=== PATIENT | female | born 1950 | race Caucasian/White ===

== ENCOUNTER → 2019-03-29 07:08 | Outpatient (CLI) | payer MEDICARE, BC, SELFPAY ==
[2019-03-29 14:15] LABS: Alanine Aminotransferase 23 U/L (12-78); Albumin Level 3.2 gm/dL (3.4-5.0); Albumin/Globulin Ratio 1.1 (1.1-1.8); Alkaline Phosphatase 70 U/L (46-116); Bilirubin,Total 0.5 mg/dL (0.2-1.0); Blood Urea Nitrogen 13 mg/dL (7-18); Calcium 8.9 mg/dL (8.5-10.1); Chloride 109 mmol/L (98-107); Cholesterol 179 mg/dL (140-200); Globulin 2.8 gm/dl (1.3-3.2)
[2019-03-29 14:20] LABS: Anion Gap 12.1 mEq/L (5-15); Aspartate Amino Transferase 17 U/L (15-37); Carbon Dioxide 26 mmol/L (21.0-32.0); Chol/HDL Ratio 4.7 (1-3.5); Creatinine,Serum 0.87 mg/dL (0.55-1.02); Estimated Glomerular Filt Rate 64 ml/min (>60); Free Thyroxine Index 2.6 ug/dL (5.93-13.13); GFR (African American) 78 ML/MIN (>60); Glucose 98 mg/dL (74-106); HDL Cholesterol 38 mg/dL (29-89); LDL Cholesterol 92 mg/dL (0-130); Potassium 4.1 mmoL/L (3.5-5.1); Sodium 143 mmol/L (136-145); T4 (Thyroxine) 7.5 ug/dl (4.7-13.3); Thyroid Stimulating Hormone 1.69 uIU/ml (0.358-3.740); Triglycerides 247 mg/dL (30-200); Triiodothryronine (T3) Uptake 35 % (31-39); VLDL Cholesterol 49 mg/dL (0-40)
[2019-03-29 14:40] LABS: Basophils # 0.1 K/mm3 (0-0.2); Basophils % 1.6 % (0.1-2.0); Eosinophils # 0.2 K/mm3 (0.0-0.4); Eosinophils % 3.6 % (0.1-12.0); Hematocrit 40.2 % (37.0-47.0); Hemoglobin 12.8 g/dL (12.2-16.2); Lymphocytes # 1.5 K/mm3 (0.7-4.5); Lymphocytes % 36.4 % (10-50); Mean Corpuscular HGB Conc 31.8 g/dL (31.8-35.4); Mean Corpuscular Hemoglobin 29.7 pg (27.0-31.2); Mean Corpuscular Volume 93.2 fl (81-99); Mean Platelet Volume 9.2 fl (7.4-10.4); Monocytes # 0.3 K/mm3 (0.1-1.0); Monocytes % 6.1 % (1.7-9.3); Neutrophils # 2.2 K/mm3 (1.8-7.8); Neutrophils % 52.3 % (37.0-80.0); Platelet Count 319 K/mm3 (142-424); Red Blood Count 4.31 M/mm3 (4.20-5.40); Red Cell Distribution Width 13.1 % (11.5-17.5); White Blood Count 4.2 K/mm3 (4.8-10.8)
[2019-03-29 17:22] LABS: Erythrocyte Sedimentation Rate 18 mm/hr (0-30)
[2019-03-30 18:23] LABS: Deamidated Gliadin Abs, IgA 3 units (0-19); Deamidated Gliadin Abs, IgG 2 units (0-19)
== END ==
PROVIDERS: PCP Internal Medicine Adolescent Medicine; Visit Provider Internal Medicine Adolescent Medicine
DX: E78.5 Hyperlipidemia, unspecified (principal); K52.9 Noninfective gastroenteritis and colitis, unspecified; E03.9 Hypothyroidism, unspecified
CPT/HCPCS: 36415; 80053; 80061; 83516; 84436; 84443; 84479; 85025; 85651

== ENCOUNTER → 2019-07-26 08:13 | Outpatient (CLI) | payer MEDICARE, BC, SELFPAY ==
--- NOTE | 2019-07-26 08:18 | XR_ITS ---
PROCEDURE: XR WRIST LT MIN 3V CLINICAL INDICATION: left wrist pain/ ganglion cyst COMPARISON: No exams were available for comparison FINDINGS: There are severe osteoarthritic changes at the scapho trapezium joint and at the 1st metacarpal-carpal joint. There is some osteophyte formation noted laterally at the trapezium and at the 1st metacarpal-carpal joint. No acute fracture or dislocation. No lytic or blastic change. There is mild lateral subluxation of the 1st metacarpal. IMPRESSION: Severe osteoarthritis of the 1st metacarpal-carpal joint and scapho trapezium joint Dictated by: Costa Nolasco MD 07/26/2019 10:49 Electronically signed by Costa Nolasco MD in [place] 07/26/2019 10:49
== END ==
PROVIDERS: PCP Internal Medicine Adolescent Medicine; Visit Provider Orthopaedic Surgery
DX: M25.532 Pain in left wrist (principal)
CPT/HCPCS: 73110

== ENCOUNTER → 2020-03-05 07:18 | Outpatient (CLI) | payer MEDICARE, BC, SELFPAY ==
--- NOTE | 2020-03-05 07:28 | XR_ITS ---
PROCEDURE: XR LUMBAR SPINE MIN 4V CLINICAL INDICATION: LUMBAR PAIN ON PALPATION COMPARISON: No exams were available for comparison FINDINGS: Mild levoscoliosis. There is degenerative disc disease at L1-L2 and L2-L3 and to lesser degree at L3-L4 and L4-5. Sclerosis is present along the superior endplate of L2. No acute fracture or dislocation. There are facet arthritic changes at L4-L5 and S1. IMPRESSION: Scoliosis with degenerative change Dictated by: Costa Nolasco MD 03/05/2020 14:37 Electronically signed by Costa Nolasco MD in [place] 03/05/2020 14:37
== END ==
PROVIDERS: PCP Nurse Practitioner Family; Visit Provider Nurse Practitioner Family
DX: M54.5 Low back pain (principal)
CPT/HCPCS: 72110

== ENCOUNTER → 2021-04-22 18:13 | Outpatient (CLI) | payer MEDICARE, BC, SELFPAY ==
[2021-04-22 19:08] LABS: Basophils # 0.1 K/mm3 (0-0.2); Basophils % 1.9 % (0.1-2.0); Eosinophils # 0.4 K/mm3 (0.0-0.4); Eosinophils % 5.8 % (0.1-12.0); Hematocrit 39.9 % (37.0-47.0); Hemoglobin 13.5 g/dL (12.2-16.2); Lymphocytes # 1.8 K/mm3 (0.7-4.5); Lymphocytes % 29.9 % (10-50); Mean Corpuscular HGB Conc 33.9 g/dL (31.8-35.4); Mean Corpuscular Hemoglobin 29.5 pg (27.0-31.2); Mean Corpuscular Volume 86.8 fl (81-99); Mean Platelet Volume 9.5 fl (7.4-10.4); Monocytes # 0.3 K/mm3 (0.1-1.0); Monocytes % 5.1 % (1.7-9.3); Neutrophils # 3.5 K/mm3 (1.8-7.8); Neutrophils % 57.3 % (37.0-80.0); Platelet Count 334 K/mm3 (142-424); Red Blood Count 4.59 M/mm3 (4.20-5.40); Red Cell Distribution Width 13.6 % (11.5-17.5); White Blood Count 6.1 K/mm3 (4.8-10.8)
[2021-04-22 19:09] LABS: Alanine Aminotransferase 16 U/L (12-78); Albumin Level 4.1 g/dl (3.5-5.0); Albumin/Globulin Ratio 1.5 (1.1-1.8); Alkaline Phosphatase 78 U/L (38-126); Anion Gap 10.6 mEq/L (5-15); Aspartate Amino Transferase 36 U/L (14-36); Blood Urea Nitrogen 16 mg/dl (7-17); Calcium 8.9 mg/dl (8.4-10.2); Carbon Dioxide 27 mmol/L (22.0-30.0); Chloride 109 mmol/L (98-107); Chol/HDL Ratio 4.9 (1-3.5); Cholesterol 212 mg/dl (140-200); Estimated Glomerular Filt Rate 71 ml/min (>60); GFR (African American) 85 ML/MIN (>60); Globulin 2.7 g/dL (1.3-3.2); Glucose 96 mg/dl (74-100); HDL Cholesterol 43 mg/dl (40-60); Potassium 4.6 mmoL/L (3.5-5.1); Sodium 142 mmol/L (136-145); Total Protein,Serum 6.8 g/dl (6.3-8.2); Triglycerides 187 mg/dl (30-150); VLDL Cholesterol 37 mg/dL (0-40)
[2021-04-22 19:21] LABS: Direct LDL Cholesterol 130.25 mg/dL (100-129)
[2021-04-22 19:41] LABS: Thyroid Stimulating Hormone 1.51 uIU/mL (0.465-4.68)
[2021-04-22 19:59] LABS: Vitamin B12 219 pg/mL (239-931)
[2021-04-22 20:47] LABS: Hemoglobin A1C 5.8 % (4.0-6.0)
[2021-04-22 20:54] LABS: 25-OH Vitamin D, Total 19.4 ng/mL (30-100)
== END ==
PROVIDERS: Visit Provider Internal Medicine Adolescent Medicine
DX: E03.9 Hypothyroidism, unspecified (principal); E78.5 Hyperlipidemia, unspecified; E55.9 Vitamin D deficiency, unspecified; Z79.899 Other long term (current) drug therapy
CPT/HCPCS: 80053; 80061; 82306; 82607; 83036; 84443; 85025

== ENCOUNTER → 2021-07-08 18:47 | Outpatient (CLI) | payer MEDICARE, BC, SELFPAY ==
[2021-07-08 19:17] LABS: Basophils # 0.1 K/mm3 (0-0.2); Basophils % 1.4 % (0.1-2.0); Eosinophils # 0.2 K/mm3 (0.0-0.4); Eosinophils % 3.3 % (0.1-12.0); Hematocrit 45.7 % (37.0-47.0); Hemoglobin 14.2 g/dL (12.2-16.2); Lymphocytes # 1.4 K/mm3 (0.7-4.5); Lymphocytes % 23.8 % (10-50); Mean Corpuscular Hemoglobin 29.2 pg (27.0-31.2); Mean Corpuscular Volume 94.3 fl (81-99); Mean Platelet Volume 9.1 fl (7.4-10.4); Monocytes # 0.3 K/mm3 (0.1-1.0); Monocytes % 5.2 % (1.7-9.3); Neutrophils % 66.4 % (37.0-80.0); Platelet Count 347 K/mm3 (142-424); Red Blood Count 4.85 M/mm3 (4.20-5.40); Red Cell Distribution Width 13.3 % (11.5-17.5)
[2021-07-08 19:55] LABS: Alanine Aminotransferase 18 U/L (12-78); Albumin Level 4.2 g/dl (3.5-5.0); Albumin/Globulin Ratio 1.4 (1.1-1.8); Alkaline Phosphatase 80 U/L (38-126); Anion Gap 12.7 mEq/L (5-15); Aspartate Amino Transferase 28 U/L (14-36); Bilirubin,Total 0.8 mg/dl (0.2-1.3); Blood Urea Nitrogen 14 mg/dl (7-17); Calcium 9.6 mg/dl (8.4-10.2); Carbon Dioxide 28 mmol/L (22.0-30.0); Chloride 106 mmol/L (98-107); Estimated Glomerular Filt Rate 98 ml/min (>60); GFR (African American) 119 ML/MIN (>60); Glucose 99 mg/dl (74-100); Magnesium 1.6 mg/dl (1.6-2.3); Potassium 4.7 mmoL/L (3.5-5.1); Sodium 142 mmol/L (136-145); Total Protein,Serum 7.2 g/dl (6.3-8.2)
[2021-07-08 20:19] LABS: Thyroid Stimulating Hormone 1.31 uIU/mL (0.465-4.68)
[2021-07-08 20:45] LABS: Vitamin B12 > 1000 pg/mL (239-931)
[2021-07-08 21:03] LABS: 25-OH Vitamin D, Total 30.8 ng/mL (30-100)
== END ==
PROVIDERS: Visit Provider Internal Medicine Adolescent Medicine
DX: E03.9 Hypothyroidism, unspecified (principal); E53.8 Deficiency of other specified B group vitamins; E55.9 Vitamin D deficiency, unspecified
CPT/HCPCS: 80053; 82306; 82607; 83735; 84443; 85025

== ENCOUNTER → 2021-07-09 08:23 | Outpatient (CLI) | payer MEDICARE, BC, SELFPAY ==
--- NOTE | 2021-07-09 08:32 | XR_ITS ---
PROCEDURE: XR HIP RT 2-3V W/PELVIS CLINICAL INDICATION: LOW BACK PAIN COMPARISON: No exams were available for comparison FINDINGS: No fracture or dislocation is evident. No significant degenerative change. No lytic or blastic change. Small calcific density is present cephalad to the greater trochanter and could be due to an area heterotopic ossification or tendinous calcification. Bony hypertrophy is present at the greater trochanter.. IMPRESSION: No acute finding. Dictated by: Costa Nolasco MD 07/09/2021 18:24 Costa Nolasco MD in [place] 07/09/2021 18:24
--- NOTE | 2021-07-09 08:32 | XR_ITS ---
PROCEDURE: XR HIP LT 2-3V W/PELVIS CLINICAL INDICATION: LOW BACK PAIN COMPARISON: No exams were available for comparison FINDINGS: No fracture or dislocation is evident. No significant degenerative change. No lytic or blastic change. Unremarkable soft tissues. IMPRESSION: Negative left Dictated by: Costa Nolasco MD 07/09/2021 18:26 Costa Nolasco MD in [place] 07/09/2021 18:26
--- NOTE | 2021-07-09 08:32 | XR_ITS ---
PROCEDURE: XR LUMBAR SPINE MIN 4V CLINICAL INDICATION: LOW BACK PAIN COMPARISON: CR XR LUMBAR SPINE MIN 4V from 03/05/2020 FINDINGS: Mild upper lumbar scoliosis convex left. There is degenerative disc disease at L1-L2 with anterior osteophytes not significantly changed. There are mild facet hypertrophic/arthritic changes at L3 L4 and L5. The SI joints have an unremarkable appearance. There are bilateral tubal ligation clips IMPRESSION: Lumbar scoliosis with degenerative disc disease at L1-L2 and facet arthritic changes. No acute finding. Dictated by: Costa Nolasco MD 07/09/2021 18:22 oCsta Nolasco MD in [place] 07/09/2021 18:22
--- NOTE | 2021-07-09 08:32 | XR_ITS ---
PROCEDURE: XR SACROILIAC JOINT BI MIN 3V CLINICAL INDICATION: LOW BACK PAIN COMPARISON: No exams were available for comparison FINDINGS: No fracture or dislocation. No lytic or blastic change. There is normal mineralization. Joint spaces are well preserved. There is minimal spurring along the inferior aspect of the SI joints. No fusion, lytic or blastic change. Other findings:None. IMPRESSION: Minimal degenerative changes of the SI joints Dictated by: Costa Nolasco MD 07/09/2021 18:27 Costa Nolasco MD in [place] 07/09/2021 18:27
== END ==
PROVIDERS: PCP Internal Medicine Adolescent Medicine; Visit Provider Internal Medicine Adolescent Medicine
DX: M54.50 Low back pain, unspecified (principal); M53.3 Sacrococcygeal disorders, not elsewhere classified; M25.552 Pain in left hip; M25.551 Pain in right hip
CPT/HCPCS: 72110; 72202; 73502

== ENCOUNTER → 2021-07-24 14:21 | Outpatient (POV) | payer MEDICARE, BC, SELFPAY ==
[2021-07-24 14:59] VITALS: BP 143/84; PULSE 85; RESP 18; O2SAT 95; BMI 33.3
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
== END ==
PROVIDERS: Visit Provider Clinical Nurse Specialist Family Health
DX: M46.1 Sacroiliitis, not elsewhere classified (principal); M70.61 Trochanteric bursitis, right hip
CPT/HCPCS: 99202; G0463

== ENCOUNTER 2021-08-08 13:30 | Day surgery (SDC) | payer MEDICARE, BC, SELFPAY ==
[2021-08-08 13:52] VITALS: BP 139/76; PULSE 79; RESP 18; TEMP 36.6; O2SAT 95; BMI 24.4
--- NOTE | 2021-08-08 14:20 | HMH.PMPROC ---
- Procedure Date: 08/08/21 Time: 14:20 Anesthesiologist:: Marilia Hardin MD Complications:: None Pre-procedure Diagnosis:: Right sacroiliitis, right-sided low back pain, right-sided hip pain Post-procedure Diagnosis:: Same Indications for Procedure:: Patient is a very pleasant 71-year-old white female who presents today with chronic low back pain and right-sided hip pain related to the above diagnosis. She has tried and failed conservative treatment including oral pain medication and home stretching program for greater than 6 weeks. The plan for today is for the patient to undergo right-sided SI joint injections under fluoroscopy and right-sided trochanteric bursa injection under fluoroscopy. Procedure Details:: Informed consent was obtained and the risks and benefits of the procedure was going to the patient. Patient was taken to the procedure room. Patient was placed prone on the procedure table. The right hip was prepped using ChloraPrep. The skin and subcutaneous tissues were anesthetized using lidocaine. I placed a 22-gauge spinal needle into the inferior aspect of the right SI joint. Needle placement was confirmed with dye. After this we injected 5 mL bupivacaine 0.25% and Depo-Medrol 40 mg into the right SI joint. The patient tolerated the procedure well with no complication. Next, the skin and subcutaneous tissues overlying the right trochanteric bursa were anesthetized using 2 ml of 1% lidocaine. I placed a 22-gauge spinal needle under fluoroscopic guidance and advanced until it contacted the right greater trochanter. Needle placement was confirmed with dye. After this we injected 5 mL bupivacaine 0.25% and Depo-Medrol 40 mg. Patient tolerated the procedure well with no complications. Plan and Disposition:: We will follow-up this patient in 2 weeks. Will reevaluate pain symptoms at that time.
[2021-08-08 14:21] VITALS: BP 144/86; PULSE 74; RESP 18; O2SAT 95
[2021-08-08 14:22] VITALS: BP 139/81; PULSE 78; RESP 18; O2SAT 95
[2021-08-08 14:40] VITALS: BP 139/75; PULSE 76; RESP 20; O2SAT 95
== END 2021-08-08 14:41 | disposition home or self-care (01) ==
LOC: SC.PAINP 13:31
PROVIDERS: PCP Internal Medicine Adolescent Medicine; Visit Provider Anesthesiology Pain Medicine
DX: M46.1 Sacroiliitis, not elsewhere classified (principal); M54.59 Other low back pain; M25.551 Pain in right hip; E78.5 Hyperlipidemia, unspecified; M19.90 Unspecified osteoarthritis, unspecified site; E07.9 Disorder of thyroid, unspecified; F32.A Depression, unspecified; F41.9 Anxiety disorder, unspecified; Z86.718 Personal history of other venous thrombosis and embolism; Z90.49 Acquired absence of other specified parts of digestive tract; Z88.9 Allergy status to unspecified drugs, medicaments and biological substances; Z88.6 Allergy status to analgesic agent; Z91.02 Food additives allergy status
CPT/HCPCS: 20610; 27096; 77002; G0260; J1040; Q9966

== ENCOUNTER → 2021-08-28 14:24 | Outpatient (POV) | payer MEDICARE, BC, SELFPAY ==
[2021-08-28 14:58] VITALS: BP 121/71; PULSE 85; RESP 18; O2SAT 95; BMI 30.7
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
== END ==
PROVIDERS: Visit Provider Clinical Nurse Specialist Family Health
DX: M46.1 Sacroiliitis, not elsewhere classified (principal); M54.50 Low back pain, unspecified; M25.551 Pain in right hip
CPT/HCPCS: 99212; G0463

== ENCOUNTER 2021-09-24 13:11 | Day surgery (SDC) | payer MEDICARE, SELFPAY ==
[2021-09-24 13:26] VITALS: BP 156/84; PULSE 71; RESP 20; TEMP 36; O2SAT 94; BMI 30.7
[2021-09-24 14:01] VITALS: BP 165/78; PULSE 69; RESP 18; O2SAT 95
[2021-09-24 14:02] VITALS: PULSE 74; RESP 18; O2SAT 95
--- NOTE | 2021-09-24 14:04 | HMH.PMPROC ---
- Procedure Date: 09/24/21 Time: 14:04 Anesthesiologist:: Pato Walsh MD Complications:: None Pre-procedure Diagnosis:: Sacroiliitis Post-procedure Diagnosis:: Same Indications for Procedure:: This patient is a pleasant 71-year-old white female who we are treating for right-sided hip pain. She has chronic right-sided sacroiliitis. She did well with her last SI joint injection however it did not last very long. She is tender over the right SI joint. She does have a positive Cassandra's test on the right side. She has positive Georges Mills's test on the right side. She has positive SI joint compression test on the right side. We will do a repeat right SI joint injection under fluoroscopy today to help her with her pain symptoms. Procedure Details:: Right SI joint injection under fluoroscopy Informed consent was obtained and the risks and benefits of the procedure was going to the patient. Patient was taken to the procedure room. Patient was placed prone on the procedure table. The right hip was prepped using ChloraPrep. The skin and subcutaneous tissues were anesthetized using lidocaine. I placed a 22-gauge spinal needle into the inferior aspect of the right SI joint. Needle placement was confirmed with dye. After this we injected 5 mL bupivacaine 0.25% and Depo-Medrol 40 mg into the right SI joint. The patient tolerated the procedure well with no complication. Plan and Disposition:: We will follow-up with her in 2 weeks. Will reevaluate symptoms at that time. If she does not get long-term relief from this injection she may be a candidate for SI joint stabilization with cornerloc.
[2021-09-24 14:17] VITALS: BP 150/78; PULSE 67; RESP 20; O2SAT 94
== END 2021-09-24 14:18 | disposition home or self-care (01) ==
LOC: SC.PAINP 13:12
PROVIDERS: PCP Internal Medicine Adolescent Medicine; Visit Provider Anesthesiology
DX: M46.1 Sacroiliitis, not elsewhere classified (principal); E78.5 Hyperlipidemia, unspecified; E07.9 Disorder of thyroid, unspecified; Z86.718 Personal history of other venous thrombosis and embolism; K57.32 Diverticulitis of large intestine without perforation or abscess without bleeding; F32.A Depression, unspecified; M19.90 Unspecified osteoarthritis, unspecified site; Z88.6 Allergy status to analgesic agent; Z88.8 Allergy status to other drugs, medicaments and biological substances
CPT/HCPCS: 27096; G0260; J1040; Q9966

== ENCOUNTER → 2021-10-14 08:19 | Outpatient (POV) | payer MEDICARE, SELFPAY ==
[2021-10-14 08:34] VITALS: BP 164/78; PULSE 91; RESP 20; TEMP 35.9; O2SAT 96; BMI 30.7
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
== END ==
PROVIDERS: Visit Provider Clinical Nurse Specialist Family Health
DX: M54.50 Low back pain, unspecified (principal); M54.16 Radiculopathy, lumbar region
CPT/HCPCS: 99212; G0463

== ENCOUNTER → 2021-10-20 14:20 | Outpatient (CLI) | payer MEDICARE, SELFPAY ==
--- NOTE | 2021-10-20 14:24 | MR_ITS ---
FINAL REPORT CLINICAL HISTORY: LUMBAR PAIN. rt sided lbp [id number]. FINDINGS: Multiplanar MR imaging of the lumbar spine was performed without contrast. There is levoscoliosis. On the sagittal T2-weighted images, disc degeneration is seen throughout. There is mild retrolisthesis of L1 on L2. There is mild anterolisthesis of L4 on L5. There is no evidence of fracture. There are multiple hemangiomas. The conus has an unremarkable appearance. No significant canal stenosis is identified. There is a small cyst in the mid sacral spinal canal. T12-L1: There is an annular bulge with facet arthropathy. There is a left foraminal inferiorly extruded disc. There is mild right and moderate left neural foraminal narrowing. L1-2: There is an annular bulge, facet arthropathy and vertebral osteophytes. There is a right foraminal disc protrusion. There is severe right and moderate left neural foraminal narrowing. L2-3: There is an annular bulge with facet arthropathy. There is moderate bilateral neural foraminal narrowing. L3-4: There is an annular bulge with facet arthropathy. There is a small right foraminal disc protrusion. There is mild right neural foraminal narrowing. L4-5: There is an annular bulge with facet arthropathy. There is mild left neural foraminal narrowing. L5-S1: An annular bulge and facet arthropathy are present. There is no significant canal stenosis or neural foraminal narrowing. IMPRESSION: Left foraminal inferiorly extruded disc at T12-L1. Right foraminal disc protrusions at L1-L2 and L3-L4 without significant central canal stenosis. Multilevel degenerative disc disease with areas of neural foraminal narrowing as described. Reviewed, Interpreted and Dictated by Armando Gaming III, MD Transcribed by Ean Angela Authenticated by Armando Gaming III, MD on 10/20/2021 04:33:18 PM [facility]
== END ==
PROVIDERS: PCP Internal Medicine Adolescent Medicine; Visit Provider Clinical Nurse Specialist Family Health
DX: M54.50 Low back pain, unspecified (principal)
CPT/HCPCS: 72148; 76376

== ENCOUNTER → 2021-11-06 08:19 | Outpatient (POV) | payer MEDICARE, SELFPAY ==
[2021-11-06 08:55] VITALS: BP 147/77; PULSE 87; RESP 18; O2SAT 96; BMI 30.7
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
== END ==
PROVIDERS: Visit Provider Anesthesiology Pain Medicine
DX: M51.36 Other intervertebral disc degeneration, lumbar region (principal); M54.06 Panniculitis affecting regions of neck and back, lumbar region; M47.816 Spondylosis without myelopathy or radiculopathy, lumbar region; M46.1 Sacroiliitis, not elsewhere classified
CPT/HCPCS: 99212; G0463

== ENCOUNTER 2021-11-21 14:32 | Day surgery (SDC) | payer MEDICARE, SELFPAY ==
[2021-11-21 14:44] VITALS: BP 145/74; BP 149/80; BP 150/77; PULSE 69; PULSE 70; PULSE 71; RESP 17; RESP 20; TEMP 36.7; O2SAT 93; O2SAT 95; BMI 29.7
--- NOTE | 2021-11-21 15:25 | P.PCN_ITS ---
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 She has increasing pain over the low back and both hips. She has worsening pain with extension and twisting. She is tender over the facet joints of L4-5 and L5-S1. We will plan on lumbar medial branch block/facet joint injections of L4-5 and L5-S1 today. Procedure Details:: Lumbar medial branch block Informed consent was obtained and the risks and benefits of the procedure was explained to the patient. The back was prepped using ChloraPrep. The skin and subcutaneous tissues were anesthetized using lidocaine. I placed 22-gauge spi nal needles into the facet joint/medial branches of L4-L5 and L5-S1 bilaterally. Needle placement was confirmed with dye. After this we injected 3 mL bupivacaine 0.25% and Depo-Medrol 20 mg into each facet joint/medial branch of L4-L5 and L5-S1 bilaterally. We used a total of 80 mg Depo-Medrol for both levels bilaterally. The patient tolerated the procedure well with no complications. Plan and Disposition:: We will follow-up with her in 2 weeks. Will reevaluate symptoms at that time.
[2021-11-21 15:30] VITALS: BP 161/81; PULSE 76; RESP 20; O2SAT 97
== END 2021-11-21 15:30 | disposition home or self-care (01) ==
LOC: SC.PAINP 14:33
PROVIDERS: PCP Internal Medicine Adolescent Medicine; Visit Provider Anesthesiology
DX: M51.36 Other intervertebral disc degeneration, lumbar region (principal); M47.812 Spondylosis without myelopathy or radiculopathy, cervical region; M54.06 Panniculitis affecting regions of neck and back, lumbar region; E03.9 Hypothyroidism, unspecified; E78.5 Hyperlipidemia, unspecified; Z86.718 Personal history of other venous thrombosis and embolism; Z88.6 Allergy status to analgesic agent; Z88.8 Allergy status to other drugs, medicaments and biological substances
CPT/HCPCS: 64493; 64494; Q9966

== ENCOUNTER 2021-12-16 08:00 | Outpatient (RCR) | payer MEDICARE, SELFPAY ==
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
== END 2021-12-17 11:20 | disposition home or self-care (01) ==
LOC: PT.CARL 08:00
PROVIDERS: PCP Internal Medicine Adolescent Medicine; Visit Provider Clinical Nurse Specialist Family Health
DX: M54.50 Low back pain, unspecified (principal)
CPT/HCPCS: 97010; 97014; 97110; 97140; 97163; 97164; 97530; G0283

== ENCOUNTER → 2021-12-18 15:03 | Outpatient (POV) | payer MEDICARE, SELFPAY ==
[2021-12-18 15:15] VITALS: BP 120/78; PULSE 79; RESP 18; TEMP 36.4; O2SAT 95; BMI 30.7
--- NOTE | 2021-12-18 16:45 | HMH.PAINSOAP ---
[facility] Pain Management SOAP Note Subjective:: Patient is a pleasant 71-year-old female who is here for a follow up after facet injections/medial branch block at L4-L5 and L5-S1 bilaterally on November 21, 2021. Patient is currently being treated for degenerative disc disease of lumbar spine, lumbar spondylosis, lumbar facet arthropathy. After the procedure, patients reports 80 to 90% relief that lasted for almost 10 days and rates pain today at 1 out of 10. Patient denies any issues after the procedure. Patient feels like her pain is starting to come back after the injection. She would like to get a repeat injection scheduled. She does state that she was able to increase her activity more since that injection. She denies any recent falls or traumas. [facility] number [id number] with an active morphine equivalent 0. Drug screens have been reviewed and appropriate. Review of Systems: General: No recent weight changes, no fever, no sleep disturbances Respiratory: No cough, no shortness of air, no recurring pulmonary infections Cardiovascular/peripheral vascular: No chest pain, no palpitations, no edema, no shortness of breath Gastrointestinal: No new onset incontinence, normal bowel movements reported Genitourinary: No new onset incontinence Musculoskeletal: Low back pain Psychiatric: [Normal mood/affect] Neurological: [Denies weakness in extremities], [denies balance issues] Objective:: Physical Exam: General: Alert and oriented x3, no acute distress, pleasant and cooperative, [on room air] Lungs: Respirations even and unlabored, symmetrical chest expansion Eyes: PERRL Musculoskeletal: Flexion and extension of lumbar [spine] somewhat guarded secondary to pain, [antalgic gait noted]; +kemps test Neurological: Speech clear, no gross sensory deficit Assessment:: Degenerative disc disease of lumbar spine with lumbar radiculopathy symptoms, lumbar spondylosis, lumbar facet arthropathy Plan:: Patient has significant relief after her medial branch blocks/facet injection at L4-L5 and L5-S1 bilaterally. Patient denies any issues after the injection. Patient says that she feels like the injection is starting to wear off. She would like to schedule another injection today. We will schedule the patient for a medial branch block/facet injection at L4-L5 and L5-S1 bilaterally. Risks and benefits of the procedure have been explained to the patient. Patient would like to proceed with the procedure. Patient is currently not on any blood thinners. Patient states that she has had medial branch block injections in the past. I discussed with her that she could benefit from an RFA. She says that she is going to start to move to a newly renovated house. She says that she will try to get an RFA after she has completely moved into her house. Patient has been instructed to contact the clinic with any concerns before the next appointment. Dr. Walsh has reviewed this note and agrees with this plan of care. This note was dictated using voice recognition software and make contain errors or omissions. [facility] History Medical History: Reports:: Deep Vein Thrombosis, Hyperlipidemia Denies:: Cancer, Diabetes Mellitus Type 1, Diabetes Mellitus Type 2, MRSA, Seizures *Have you ever received a pneumonia vaccine?: Yes *Have you received a flu vaccine this season?: Yes Other Medical History: Reports: Arthritis, Hypothyroidism, Thyroid Disease Other Surgeries: Yes: Cholecystectomy, Colonoscopy, Tubal Ligation Amputation: No Fractures: No - *Social History Smoking Status: Never smoker Alcohol Intake: never *Occupational Status:: retired *Travel in the last 8 weeks: None Family Hx:: No significant family history
== END ==
PROVIDERS: Visit Provider Student in an Organized Health Care Education/Training Program
DX: M51.16 Intervertebral disc disorders with radiculopathy, lumbar region (principal); M47.896 Other spondylosis, lumbar region; M54.06 Panniculitis affecting regions of neck and back, lumbar region
CPT/HCPCS: 99212; G0463

== ENCOUNTER 2022-01-30 09:35 | Day surgery (SDC) | payer MEDICARE, SELFPAY ==
[2022-01-30 09:53] VITALS: BP 164/90; PULSE 72; RESP 18; TEMP 36.8; O2SAT 95; BMI 31.4
[2022-01-30 10:23] VITALS: BP 151/78; PULSE 72; RESP 18; O2SAT 94
--- NOTE | 2022-01-30 10:23 | P.PCN_ITS ---
- Procedure Date: 01/30/22 Time: 10:23 Anesthesiologist:: Mo Dobbs CRNA Complications:: None Pre-procedure Diagnosis:: Bilateral lumbar facet arthropathy L4-5, L5-S1 Post-procedure Diagnosis:: Same Indications for Procedure:: Patient is a pleasant 71-year-old female that presents to our injection clinic today for bilateral L4-5, L5-S1 bilateral medial branch block. Patient has had 1 round of the lumbar injections. Patient reports 8 to 10 days of relief. We will proceed with second round of medial branch block lumbar L4-5, L5-S1. Procedure Details:: Informed consent was obtained and the risk and benefits of the procedure was explained to the patient. Patient was taken to the procedure room where noninvasive monitors were placed, including noninvasive blood pressure cuff as well as pulse oximeter. The area over the lumbar spine was cleansed using chlorhexidine as a cleansing solution. I anesthetized the skin and subcutaneous tissues with 1% Lidocaine. I placed 22-gauge spinal needles into the facet joint/ medial branches of L4-L5, and L5-S1] bilaterally. Needle placement was confirmed with fluoroscopy. After confirmation of needle placement, each site was injected with 1 mL of 1% lidocaine and 0.25 % Marcaine and 10 mg of Depo- Medrol. A total of 80 mg of depo medrol was used for bilateral medial branch blocks of L4-L5, and L5-S1] bilaterally. Patient tolerated the procedure without difficulty. There were no complications. Plan and Disposition:: Patient was discharged without incident.
[2022-01-30 10:25] VITALS: BP 146/80; PULSE 80; RESP 18; O2SAT 94
[2022-01-30 10:40] VITALS: BP 147/86; PULSE 68; RESP 18; O2SAT 93
== END 2022-01-30 10:40 | disposition home or self-care (01) ==
LOC: SC.PAINP 09:36
PROVIDERS: PCP Internal Medicine Adolescent Medicine; Visit Provider Nurse Anesthetist, Certified Registered
DX: M47.816 Spondylosis without myelopathy or radiculopathy, lumbar region (principal); E78.5 Hyperlipidemia, unspecified; M19.90 Unspecified osteoarthritis, unspecified site; Z86.718 Personal history of other venous thrombosis and embolism; F41.9 Anxiety disorder, unspecified; F32.A Depression, unspecified; Z88.6 Allergy status to analgesic agent; Z88.8 Allergy status to other drugs, medicaments and biological substances; Z91.018 Allergy to other foods
CPT/HCPCS: 64493; 64494; J1040

== ENCOUNTER → 2022-03-03 09:25 | Outpatient (POV) | payer MEDICARE, SELFPAY ==
--- NOTE | 2022-03-03 09:58 | P.CONS_ITS ---
[facility] Pain Management SOAP Note Subjective:: This patient is a very pleasant 71-year-old female who returns our clinic today after receiving bilateral medial branch blocks L4-5, L5-S1. This was her second round. She had significant improvement with first round medial branch blocks same levels. Today she rates her pain 1/10. She states she has been feeling much better following the injections. Her low back pain is dull at times. Otherwise, she is doing very well. We did mention radiofrequency ablation of the L4-5 and L5-S1 bilateral facet joints. She will let us know if indeed she would like to have this in the future. Otherwise, she is doing very well at this time. Objective:: Patient is awake alert [place] x3. In no acute distress. Flexion-extension lumbar spine normal. Deep tendon reflexes upper and lower extremities normal. Motor strength upper and lower extremities normal. There is no gross sensory deficit. Gait is normal. Assessment:: Of disc disease lumbar spine multilevels. Multilevel lumbar facet arthropathy. Lumbar radiculopathy. LumBar spondylosis. Plan:: Patient return to see us in 1 month. [facility] History Medical History: Reports:: Deep Vein Thrombosis, Hyperlipidemia Denies:: Cancer, Diabetes Mellitus Type 1, Diabetes Mellitus Type 2, MRSA, Seizures *Have you ever received a pneumonia vaccine?: Yes *Have you received a flu vaccine this season?: Yes Other Medical History: Reports: Arthritis, Hypothyroidism, Thyroid Disease Other Surgeries: Yes: Cholecystectomy, Colonoscopy, Tubal Ligation Amputation: No Fractures: No - *Social History Smoking Status: Never smoker Alcohol Intake: never *Occupational Status:: retired *Travel in the last 8 weeks: Inside the [facility] Family Hx:: No significant family history
[2022-03-03 10:50] VITALS: BP 148/72; PULSE 83; RESP 20; TEMP 36.7; O2SAT 94; BMI 30.7
== END ==
PROVIDERS: Visit Provider Nurse Anesthetist, Certified Registered
DX: M51.16 Intervertebral disc disorders with radiculopathy, lumbar region (principal); M47.26 Other spondylosis with radiculopathy, lumbar region
CPT/HCPCS: 99212; G0463

== ENCOUNTER 2022-10-19 17:19 | Emergency (ER) | payer MEDICARE, SELFPAY ==
--- NOTE | 2022-10-19 17:24 | XR_ITS ---
PROCEDURE INFORMATION: Exam: XR Right Shoulder Exam date and time: 10/19/2022 5:28 PM Age: 72 years old Clinical indication: Injury or trauma; Fall; Blunt trauma (contusions or hematomas); Shoulder and arm, upper; Right TECHNIQUE: Imaging protocol: Radiologic exam of the Right shoulder. Views: 2 or more views. COMPARISON: No relevant prior studies available. FINDINGS: Bones/joints: No acute fracture or dislocation. Mild degenerative changes. Soft tissues: Normal. IMPRESSION: No acute osseous abnormality.
--- NOTE | 2022-10-19 17:24 | XR_ITS ---
PROCEDURE INFORMATION: Exam: XR Right Humerus Exam date and time: 10/19/2022 5:32 PM Age: 72 years old Clinical indication: Injury or trauma; Fall; Blunt trauma (contusions or hematomas); Shoulder and arm, upper; Right TECHNIQUE: Imaging protocol: Radiologic exam of the Right humerus. Views: 2 or more views. COMPARISON: CR XR SHOULDER RT MIN 2V 10/19/2022 5:28 PM FINDINGS: Bones/joints: No acute fracture or dislocation. Soft tissues: Normal. IMPRESSION: No acute osseous abnormality.
[2022-10-19 17:45] VITALS: BP 141/86; PULSE 85; RESP 17; TEMP 36.6; O2SAT 100; BMI 33.6
--- NOTE | 2022-10-19 18:05 | EXP.UTC ---
Discharge Plan Disposition Patient Disposition: Home, Self-Care Condition: Good Prescriptions Prescriptions: No Action cyanocobalamin (vitamin B-12) 2,500 mcg tablet 2,500 mcg PO DAILY cholecalciferol (vitamin D3) 50 mcg (2,000 unit) capsule 50 mcg PO DAILY hydroxyzine HCl 25 mg tablet 25 mg PO TID PRN (Reason: anxiety) diazepam 2 mg tablet 2 mg PO DAILY PRN (Reason: anxiety) All Day Allergy (cetirizine) 10 mg capsule 10 mg PO DAILY PRN nystatin 100,000 unit/gram cream 1 applic TP TID PRN amoxicillin 500 mg tablet 500 mg PO TID Qty: 30 0RF colestipol 1 gram tablet 3 g PO DAILY 30 Days Qty: 90 2RF levothyroxine 50 mcg tablet 50 mcg PO DAILY 30 Days Qty: 30 1RF escitalopram oxalate 10 MG tablet 10 mg PO DAILY Referrals Follow up/Referrals: Ze Beckford MD [Primary Care Provider] - See instructions Activity Restrictions/Add. Instructions Additional Instructions/Restrictions: *RICE, Rest the extremity, Ice 15-20 minutes 3-4 times daily, Compress- wear the constantine wrap as discussed as much as possible to help reduce swelling and pain, Elevate the extremity when at rest Over the counter Muscle rubs may help with pain and discomfort *Elevate when resting? *Ibuprofen 600-800mg every 6-8 hours as needed for pain an inflammation if you can take it. If need something more or cannot take Motrin you can take Tylenol in between doses of Ibuprofen to help Follow up with your Family Doctor if no improvement or any worsening of symptoms Clinical Impressions Clinical Impression: Acute shoulder pain Instructions Patient Instructions: How To Perform RICE (Rest, Ice, Compress, Elevate), Ibuprofen, Acetaminophen (Alternative Therapy) Discharge ED Provider: Lucero Moss [facility] [place] General Stated complaint: AO@1500 RT arm and shoulder inj Mode of Arrival: Ambulatory Source of Information: Patient Limitations: No Limitations Time Seen by Provider: 10/19/22 18:05 Description of Symptoms (Recalled from Triage Doc. by RN): PATIENT C/O INJURY TO RIGHT SHOULDER TODAY AFTER FALLING AT DAUGHTER'S STORE HEENT Symptoms (Recalled from RN notes): No Resp Symptoms (Recalled from RN notes): No Skin Symptoms (Recalled from RN notes): No MS Symptoms (Recalled from RN notes): Yes Functional Status (Recalled from RN notes): WNL History of Present Illness Provider Complaint: Patient states that earlier today she lost her footing and tripped and fell and landed on her right shoulder States that she has been having pain in her right shoulder/upper arm ever since States that it hurts when she tries to raise her arm State that as long as she keeps it down by her side she doesnt have pain just when she tries to raise it so she came in to get it checked Denies any other injury Related Data Home Medications Medication Instructions Recorded Confirmed escitalopram oxalate 10 mg tablet 10 mg PO DAILY Depression 08/08/21 09/28/22 cetirizine 10 mg capsule (All Day 10 mg PO DAILY PRN 04/03/22 09/28/22 Allergy (cetirizine)) cholecalciferol (vitamin D3) 50 50 mcg PO DAILY 04/03/22 09/28/22 mcg (2,000 unit) capsule cyanocobalamin (vitamin B-12) 2,500 mcg PO DAILY 04/03/22 09/28/22 2,500 mcg tablet diazepam 2 mg tablet 2 mg PO DAILY PRN anxiety 04/03/22 09/28/22 hydroxyzine HCl 25 mg tablet 25 mg PO TID PRN anxiety 04/03/22 09/28/22 nystatin 100,000 unit/gram topical 1 applic topical TID PRN 04/03/22 09/28/22 cream Previous Rx's Medication Instructions Recorded colestipol 1 gram tablet 3 g PO DAILY diarrhea 30 days #90 09/25/22 tabs levothyroxine 50 mcg tablet 50 mcg PO DAILY thyroid 30 days 09/25/22 #30 tabs amoxicillin 500 mg tablet 500 mg PO TID #30 tabs 09/28/22 Allergies Allergy/AdvReac Type Severity Reaction Status Date / Time Estrogens [ESTROGENS] Allergy Intermediate BLOOD CLOTS Verified 09/28/22 14:52 aspirin AdvReac Intermediate BLEED Verified 09/28/22 14:52 S
[2022-10-19 18:17] VITALS: BP 141/86; PULSE 85; RESP 17; TEMP 36.6; O2SAT 100
== END 2022-10-19 18:20 | disposition home or self-care (01) ==
PROVIDERS: Emergency Provider Nurse Practitioner; PCP Family Medicine
DX: M25.511 Pain in right shoulder (principal); W18.39XA Other fall on same level, initial encounter; Y92.512 Supermarket, store or market as the place of occurrence of the external cause
CPT/HCPCS: 73030; 73060; 99213; G0463

== ENCOUNTER 2022-11-17 10:00 | Outpatient (RCR) | payer MEDICARE, SELFPAY ==
--- NOTE | 2022-10-27 14:01 | HMH.PTOPEV ---
PT Outpatient Evaluation Rehab PT Outpatient Evaluation Start: 10/27/22 12:51 Freq: Status: Active Protocol: Document 10/27/22 12:51 PDESEROUX (Rec: 10/27/22 14:01 PDESEROUX [id number]) E-signed By Mo Alvarez, PT Outpatient Therapy Subjective History Subjective History Pt. is a 72 year old female whom presents to [facility] Outpatient Physical Therapy Services in [place] for the initial evaluation this date( 10/27/22) w/ c/o acute and constant RUE shldr. P!, weakness, and range of motion deficits of traumatic onset after falling onto RUE shldr. last Wednesday(10/19/22). Pt. reports getting her feet twisted up while carrying in some cans of soda. Pt. reports hearing a pop, but states it may have been one of the cans of soda secondary to fall . Recent diagnostic imaging( radiograph) negative for a fracture per pt. report. Pt. denies having any injections for current complaint. Pt. reports noticing a progression in improvements in RUE shldr. ROM and P! since the fall. Pt . reports performing self- assist(w/ LUE) RUE shldr. elevation and pendulums at home. Pt. reports icing shldr. some at home. Pt. denies numbness/tingling into the RUE . Current medications include Cetirizine, Cholecalciferol, Colestipol, Cyanocobalamin, Dizaepam, Escitalopram Oxalate , Hydroxyzine, Levothyroxine, and Nystatin. PMH includes tubal ligation, cholecystectomy, L-sided breast cystectomy, hx. OA, and post-polio syndrome affecting LUE. Pt. denies hx. of diabetes, denies hx. of cancer (self), denies latex allergy. Pt. reports medicational
== END 2022-12-08 08:15 | disposition home or self-care (01) ==
LOC: PT 10:00
PROVIDERS: PCP Family Medicine; Visit Provider Nurse Practitioner Family
DX: M25.511 Pain in right shoulder (principal)
CPT/HCPCS: 97010; 97014; 97110; 97163; 97530; G0283

== ENCOUNTER → 2023-02-02 16:14 | Outpatient (CLI) | payer MEDICARE, SELFPAY ==
[2023-02-02 16:41] LABS: Basophils # 0.1 K/mm3 (0-0.2); Eosinophils # 0.2 K/mm3 (0.0-0.4); Eosinophils % 3.4 % (0.1-12.0); Hematocrit 41.8 % (37.0-47.0); Hemoglobin 13.4 g/dL (12.2-16.2); Lymphocytes # 1.4 K/mm3 (0.7-4.5); Lymphocytes % 26.1 % (10-50); Mean Corpuscular Hemoglobin 29.9 pg (27.0-31.2); Mean Corpuscular Volume 93.4 fl (81-99); Mean Platelet Volume 9.3 fl (7.4-10.4); Monocytes # 0.3 K/mm3 (0.1-1.0); Monocytes % 5.8 % (1.7-9.3); Neutrophils # 3.4 K/mm3 (1.8-7.8); Neutrophils % 63.7 % (37.0-80.0); Platelet Count 372 K/mm3 (142-424); Red Blood Count 4.47 M/mm3 (4.20-5.40); Red Cell Distribution Width 12.9 % (11.5-17.5); White Blood Count 5.3 K/mm3 (4.8-10.8)
[2023-02-02 17:32] LABS: Alanine Aminotransferase 17 U/L (12-78); Albumin Level 4.1 g/dl (3.5-5.0); Albumin/Globulin Ratio 1.6 (1.1-1.8); Alkaline Phosphatase 76 U/L (38-126); Anion Gap 16.9 mEq/L (5-15); Aspartate Amino Transferase 27 U/L (14-36); Bilirubin,Total 0.8 mg/dl (0.2-1.3); Blood Urea Nitrogen 13 mg/dl (7-17); Calcium 9.1 mg/dl (8.4-10.2); Carbon Dioxide 28 mmol/L (22.0-30.0); Chloride 100 mmol/L (98-107); Chol/HDL Ratio 4.8 (1-3.5); Cholesterol 231 mg/dl (140-200); Estimated Glomerular Filt Rate 98 ml/min (>60); GFR (African American) 118 ML/MIN (>60); Globulin 2.5 g/dL (1.3-3.2); Glucose 96 mg/dl (74-100); HDL Cholesterol 48 mg/dl (40-60); Potassium 4.9 mmoL/L (3.5-5.1); Sodium 140 mmol/L (136-145); Total Protein,Serum 6.6 g/dl (6.3-8.2); Triglycerides 330 mg/dl (30-150); VLDL Cholesterol 66 mg/dL (0-40)
[2023-02-02 17:43] LABS: Direct LDL Cholesterol 132.96 mg/dL (100-129)
[2023-02-02 17:51] LABS: T4 (Thyroxine) 8.3 ug/dl (5.53-11.0)
[2023-02-02 17:52] LABS: 25-OH Vitamin D, Total 21.7 ng/mL (30-100)
[2023-02-02 18:05] LABS: Thyroid Stimulating Hormone 1.76 uIU/mL (0.465-4.68)
[2023-02-02 18:24] LABS: Vitamin B12 981 pg/mL (239-931)
== END ==
PROVIDERS: PCP Family Medicine; Visit Provider Family Medicine
DX: R53.83 Other fatigue (principal); E03.9 Hypothyroidism, unspecified; Z00.00 Encounter for general adult medical examination without abnormal findings; E55.9 Vitamin D deficiency, unspecified
CPT/HCPCS: 80053; 80061; 82306; 82607; 84436; 84443; 85025

== ENCOUNTER → 2023-08-11 23:27 | Outpatient (CLI) | payer MEDICARE, SELFPAY ==
[2023-08-11 16:20] LABS: Basophils # 0.1 K/mm3 (0-0.2); Basophils % 1.1 % (0.1-2.0); Eosinophils # 0.1 K/mm3 (0.0-0.4); Hematocrit 40.9 % (37.0-47.0); Hemoglobin 13.8 g/dL (12.2-16.2); Lymphocytes # 1.2 K/mm3 (0.7-4.5); Mean Corpuscular HGB Conc 33.8 g/dL (31.8-35.4); Mean Corpuscular Hemoglobin 31.4 pg (27.0-31.2); Mean Corpuscular Volume 92.9 fl (81-99); Mean Platelet Volume 9.4 fl (7.4-10.4); Monocytes # 0.4 K/mm3 (0.1-1.0); Monocytes % 5.9 % (1.7-9.3); Neutrophils # 4.2 K/mm3 (1.8-7.8); Platelet Count 317 K/mm3 (142-424); Red Blood Count 4.41 M/mm3 (4.20-5.40); Red Cell Distribution Width 13.2 % (11.5-17.5)
[2023-08-11 16:23] LABS: Chloride 104 mmol/L (98-107); Potassium 4.8 mmoL/L (3.5-5.1); Sodium 138 mmol/L (136-145)
[2023-08-11 16:25] LABS: Alanine Aminotransferase 18 U/L (12-78); Aspartate Amino Transferase 27 U/L (14-36); Blood Urea Nitrogen 16 mg/dl (7-17); Estimated Glomerular Filt Rate 82 ml/min (>60); GFR (African American) 99 ML/MIN (>60)
[2023-08-11 16:26] LABS: Albumin Level 4.3 g/dl (3.5-5.0); Albumin/Globulin Ratio 1.5 (1.1-1.8); Alkaline Phosphatase 80 U/L (38-126); Anion Gap 9.8 mEq/L (5-15); Calcium 9.1 mg/dl (8.4-10.2); Carbon Dioxide 29 mmol/L (22.0-30.0); Chol/HDL Ratio 5.1 (1-3.5); Cholesterol 235 mg/dl (140-200); Globulin 2.9 g/dL (1.3-3.2); Glucose 98 mg/dl (74-100); HDL Cholesterol 46 mg/dl (40-60); Total Protein,Serum 7.2 g/dl (6.3-8.2); Triglycerides 229 mg/dl (30-150); VLDL Cholesterol 46 mg/dL (0-40)
[2023-08-11 16:57] LABS: Thyroid Stimulating Hormone 1.16 uIU/mL (0.465-4.68)
== END ==
PROVIDERS: PCP Family Medicine; Visit Provider Family Medicine
DX: I10 Essential (primary) hypertension (principal); E03.9 Hypothyroidism, unspecified; Z00.00 Encounter for general adult medical examination without abnormal findings; R53.83 Other fatigue
CPT/HCPCS: 80053; 80061; 84443; 85025

== ENCOUNTER → 2023-08-24 10:21 | Outpatient (CLI) | payer MEDICARE, SELFPAY ==
--- NOTE | 2023-08-24 10:25 | XR_ITS ---
FINAL REPORT CLINICAL HISTORY: right shoulder pain FINDINGS: 3 views of the right shoulder were obtained. There is no acute fracture or dislocation. There are mild degenerative changes of the acromioclavicular and glenohumeral joints. There are no soft tissue abnormalities. IMPRESSION: No acute process. Reviewed, Interpreted and Dictated by Armando Gaming III, MD Transcribed by Ean Angela Authenticated and [facility]
== END ==
PROVIDERS: PCP Family Medicine; Visit Provider Orthopaedic Surgery
DX: M25.511 Pain in right shoulder (principal)
CPT/HCPCS: 73030

== ENCOUNTER → 2023-08-25 16:45 | Outpatient (CLI) | payer MEDICARE, SELFPAY ==
--- NOTE | 2023-08-25 16:45 | MR_ITS ---
FINAL REPORT CLINICAL HISTORY: low back pain and weakness COMPARISON: 10/20/2021 FINDINGS: Multiplanar MR imaging of the lumbar spine was performed without contrast. There is levoscoliosis. On the sagittal T2-weighted images, disc degeneration is seen throughout. There is mild retrolisthesis of L1 on 2. Endplate changes are seen at several levels. 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 There is mild anterolisthesis of L4 on 5. There is no evidence of fracture. The conus has an unremarkable appearance. T11-12: An annular bulge and facet arthropathy are present. There is no significant canal stenosis or neural foraminal narrowing. T12-L1: An annular bulge is present. Facet arthropathy and osteophytes are present. There is a left foraminal inferiorly extruded disc, moderately improved since prior. There is mild right and moderate left neural foraminal narrowing. L1-2: An annular bulge is present. Facet arthropathy and osteophytes are present. There is severe right and mild left neural foraminal narrowing. L2-3: An annular bulge is present. Facet arthropathy and osteophytes are present. There is severe right and mild left neural foraminal narrowing. L3-4: An annular bulge and facet arthropathy are present. There is mild bilateral neural foraminal narrowing. L4-5: An annular bulge and facet arthropathy are present. There is a right foraminal disc protrusion with mild right neural foraminal narrowing. L5-S1: An annular bulge and facet arthropathy are present. There is no significant canal stenosis or neural foraminal narrowing. IMPRESSION: Left foraminal inferiorly extruded disc at T12-L1, improved since prior. Multilevel degenerative disc disease and spondylosis. Right foraminal disc protrusion at L4-5. Reviewed, Interpreted and Dictated by Armando Gaming III, MD Transcribed by Lilliam Tapia Authenticated and [facility]
== END ==
PROVIDERS: PCP Family Medicine; Visit Provider Family Medicine
DX: M51.16 Intervertebral disc disorders with radiculopathy, lumbar region (principal); M54.50 Low back pain, unspecified
CPT/HCPCS: 72148; 76376

== ENCOUNTER 2024-01-12 18:00 | Outpatient (CLI) | payer MEDICARE, SELFPAY ==
[2024-01-12 16:41] LABS: Basophils # 0.1 K/mm3 (0-0.2); Basophils % 1.7 % (0.1-2.0); Eosinophils # 0.2 K/mm3 (0.0-0.4); Eosinophils % 3.3 % (0.1-12.0); Hematocrit 43.4 % (37.0-47.0); Lymphocytes # 1.4 K/mm3 (0.7-4.5); Lymphocytes % 25.5 % (10-50); Mean Corpuscular HGB Conc 32.3 g/dL (31.8-35.4); Mean Corpuscular Hemoglobin 31.1 pg (27.0-31.2); Mean Corpuscular Volume 96.4 fl (81-99); Mean Platelet Volume 9.6 fl (7.4-10.4); Monocytes # 0.3 K/mm3 (0.1-1.0); Monocytes % 5.7 % (1.7-9.3); Neutrophils # 3.5 K/mm3 (1.8-7.8); Platelet Count 334 K/mm3 (142-424); Red Blood Count 4.51 M/mm3 (4.20-5.40); Red Cell Distribution Width 13.3 % (11.5-17.5); White Blood Count 5.5 K/mm3 (4.8-10.8)
[2024-01-12 16:45] LABS: Alanine Aminotransferase 20 U/L (12-78); Albumin Level 4.4 g/dl (3.5-5.0); Albumin/Globulin Ratio 1.6 (1.1-1.8); Alkaline Phosphatase 76 U/L (38-126); Anion Gap 9.9 mEq/L (5-15); Aspartate Amino Transferase 32 U/L (14-36); Bilirubin,Total 1.2 mg/dl (0.2-1.3); Blood Urea Nitrogen 15 mg/dl (7-17); Calcium 9.7 mg/dl (8.4-10.2); Carbon Dioxide 28 mmol/L (22.0-30.0); Chloride 108 mmol/L (98-107); Chol/HDL Ratio 6.5 (1-3.5); Cholesterol 273 mg/dl (140-200); Estimated Glomerular Filt Rate 82 ml/min (>60); GFR (African American) 99 ML/MIN (>60); Globulin 2.7 g/dL (1.3-3.2); Glucose 101 mg/dl (74-100); HDL Cholesterol 42 mg/dl (40-60); Potassium 4.9 mmoL/L (3.5-5.1); Sodium 141 mmol/L (136-145); Total Protein,Serum 7.1 g/dl (6.3-8.2); Triglycerides 387 mg/dl (30-150); VLDL Cholesterol 77 mg/dL (0-40)
[2024-01-12 16:57] LABS: Direct LDL Cholesterol 129.86 mg/dL (100-129)
[2024-01-12 17:03] LABS: 25-OH Vitamin D, Total 22.7 ng/mL (30-100)
[2024-01-12 17:43] LABS: Vitamin B12 > 1000 pg/mL (239-931)
== END 2024-01-12 23:59 | disposition home or self-care (01) ==
LOC: LAB.DROPOF 01-13 10:12
PROVIDERS: PCP Family Medicine; Visit Provider Family Medicine
DX: E55.9 Vitamin D deficiency, unspecified (principal); E53.8 Deficiency of other specified B group vitamins; I10 Essential (primary) hypertension; E03.9 Hypothyroidism, unspecified; Z68.34 Body mass index [BMI] 34.0-34.9, adult
CPT/HCPCS: 80053; 80061; 82306; 82607; 82746; 84443; 85025

== ENCOUNTER 2024-05-31 11:01 | Outpatient (CLI) | payer MEDICARE, SELFPAY ==
--- NOTE | 2024-05-31 11:54 | ECG_ITS ---
APPROVED REPORT Exam: Resting ECG HR:90 bpm ECG Measurements Heart Rate 90 AXES TX 169 P 29 QRSd 75 QRS -29 QT 348 T 15 QTc 396 Conclusion SINUS RHYTHM LOW QRS VOLTAGE IN PRECORDIAL LEADS with late r wave progression - prob secondary to body habitus BORDERLINE ECG UNCONFIRMED REPORT Electronically signed by : Yohan Looney MD 06/06/2024 18:20:59
[2024-05-31 13:30] LABS: Basophils # 0.1 K/mm3 (0-0.2); Basophils % 1.6 % (0.1-2.0); Eosinophils # 0.1 K/mm3 (0.0-0.4); Eosinophils % 1.8 % (0.1-12.0); Hematocrit 42.4 % (37.0-47.0); Hemoglobin 13.4 g/dL (12.2-16.2); Lymphocytes # 1.8 K/mm3 (0.7-4.5); Lymphocytes % 25.8 % (10-50); Mean Corpuscular HGB Conc 31.7 g/dL (31.8-35.4); Mean Corpuscular Hemoglobin 29.8 pg (27.0-31.2); Mean Platelet Volume 8.9 fl (7.4-10.4); Monocytes # 0.3 K/mm3 (0.1-1.0); Monocytes % 4.2 % (1.7-9.3); Neutrophils # 4.5 K/mm3 (1.8-7.8); Neutrophils % 66.6 % (37.0-80.0); Platelet Count 451 K/mm3 (142-424); Red Blood Count 4.51 M/mm3 (4.20-5.40); White Blood Count 6.8 K/mm3 (4.8-10.8)
[2024-05-31 13:31] LABS: Chloride 108 mmol/L (98-107); Potassium 4.5 mmoL/L (3.5-5.1); Sodium 139 mmol/L (136-145)
[2024-05-31 13:34] LABS: Anion Gap 9.5 mEq/L (5-15); Blood Urea Nitrogen 19 mg/dl (7-17); Calcium 9.2 mg/dl (8.4-10.2); Carbon Dioxide 26 mmol/L (22.0-30.0); Estimated Glomerular Filt Rate 82 ml/min (>60); GFR (African American) 99 ML/MIN (>60); Glucose 95 mg/dl (74-100)
== END 2024-05-31 23:59 | disposition home or self-care (01) ==
LOC: PREOP 11:03
PROVIDERS: PCP Family Medicine; Visit Provider Surgery
DX: K61.0 Anal abscess (principal); Z01.818 Encounter for other preprocedural examination; Z01.810 Encounter for preprocedural cardiovascular examination
CPT/HCPCS: 80048; 85025; 93005

== ENCOUNTER 2024-06-02 06:04 | Day surgery (SDC) | payer MEDICARE, SELFPAY ==
[2024-06-02] VITALS (10 sets, daily range): BP systolic 135–165; BP diastolic 73–100; PULSE 70–106; RESP 12–18; TEMP 36.1–36.5; O2SAT 93–97; BMI 31.3
[2024-06-02] MEDS: LACTATED RINGERS 1000ML 1,000 ML 25 ML IV (06:37)
[2024-06-02] MEDS: 0.9 % SODIUM CHLORIDE 100 ML IV (06:55)
[2024-06-02] MEDS: METRONIDAZ/SOD CHL 500 MG/100 ML PIGGYBACK 100 MG IV (06:55)
[2024-06-02] MEDS: CEFAZOLIN SODIUM 2 GM in 0.9 % SODIUM CHLORIDE 100 ML IV (06:55)
--- NOTE | 2024-06-02 07:13 | P.PNANES_ITS ---
[facility] Disclaimer: The information contained in this section may have been updated after the patient was seen, as this information can be updated by other users. Medical History Anxiety Depression Arthritis Scoliosis Irritable bowel syndrome (IBS) History of cataract Hyperlipidemia History of anemia Hypertension Hypothyroidism Surgical History History of colonoscopy History of cholecystectomy H/O tubal ligation Family History Father Family history of diabetes mellitus type II Mother Family history of diabetes mellitus type II Social History (Updated 06/02/24 @ 06:27 by Loida Schreiber RN) Smoking Status: Never smoker alcohol intake: never substance use type: denies use current occupational status: retired Travel in the last 8 weeks: None current occupational exposures/hazards: No caffeine: Yes [facility] Anesthesia Checklist Patient Identification Patient Identification: Verbal (Name & ) Structural Data Admitted From: Home Planned Operative Procedure/s: i/d perirectal abcess Consent for Planned Operative Procedure(s) Verified: Yes NPO Status Verified Time NPO: 00:00 Additional verifications Anesthesia Reactions: Yes (nausea and vomiting) Hx Blood Transfusions: No Blood Transfusion Reaction: No Airway Assessment Mallampati Score:: Class II C-Spine Mobility Assessed: Yes TMJ Mobility Assessed: Yes Dentition: Good Dentition Neurological Assessment Level of Consciousness: Awake, Alert and Appropriate Anesthesia Plan Anesthesia Risk discussed: Yes Anesthesia Plan: Verified ASA Class: II Anesthesia Type: General
[2024-06-02] MEDS: LIDOCAINE 1% 20ML MDV 20 ML (07:14)
--- NOTE | 2024-06-02 07:18 | P.OP_ITS ---
Date of procedure: 06/02/24 Pre-op Diagnosis:: Left perianal abscess Post-op Diagnosis:: Same Procedure performed:: Incision and drainage of left perianal abscess Surgeon:: Florencio Stafford MD [employer] CLAIM ADJUSTER:: Gonsalo Ny Anesthesia: LMA Estimated blood loss (mL): 15 Operative findings:: Moderate left perianal/ischio-rectal abscess cavity Operative note:: After informed consent was obtained the patient was taken to the operating room and placed in the supine position. General anesthesia with laryngeal mask airway was achieved. She was transferred to a modified lithotomy position. Her perianal region was prepped and draped in a sterile fashion. Induration and soft tissue edema noted at site of prior focal incision and drainage (left perianal region). The central portion of the area was opened with electrocautery. A moderate perianal/ischio-rectal abscess cavity was noted. The wound was evacuated and then packed with gauze. The entire region was infiltrated with 1% lidocaine. Dressings were applied and the patient was transferred to recovery in stable condition. Condition: stable Disposition: PACU Specimens:: none Complications:: No immediate
--- NOTE | 2024-06-02 07:25 | EXP.ANES.I ---
[facility] Anesthesia Record Part I Anesthesia Record I Intake, IV Amount: 1,000 Hydration: Adequate Estimated blood loss (mL): 0 Urine output (mL): 0 Blood Pressure: 165/100 SaO2: 95 Pulse Rate: 85 Airway Patency: Patent Respiratory Rate: 12 Temperature: 97.5 F Patient is:: Awake, Drowsy and Stable Stable to PACU at:: 07:24
--- NOTE | 2024-06-02 13:29 | EXP.ANES.II ---
[facility] Anesthesia Record Part II Anesthesia Record Part II Discharge Time: 07:54 Destination: Surgical Day Care (OP Surgery) PACU nurse assessment reviewed?: Yes Patient Condition:: Good Anesthesia Complications:: None Swallowing reflex intact?: Yes Airway Patency: Patent Cyanosis?: No Blood Pressure: 146/82 SaO2: 96 Respiratory Rate: 16 Pulse Rate: 78 Temperature: 97.7 F Mental Status: Alert & Oriented Pain level:: 0 Nausea and/or vomitting:: None Intake, IV Amount: 0 Hydration: Adequate
== END 2024-06-02 08:26 | disposition home or self-care (01) ==
PROVIDERS: PCP Family Medicine; Visit Provider Surgery
PROC: (CPT 46050; principal; 2024-06-02 07:00)
DX: K61.0 Anal abscess (principal)
CPT/HCPCS: 46050; 96374; J0690; J1100; J1885; J2250; J2405; J3010; J7120

== ENCOUNTER 2025-01-04 10:51 | Outpatient (CLI) | payer MEDICARE, SELFPAY ==
--- NOTE | 2025-01-04 10:53 | XR_ITS ---
FINAL REPORT CLINICAL HISTORY: Left humerus pain COMPARISON: None FINDINGS: LEFT HUMERUS Two views of the left humerus were obtained. There is no acute fracture or dislocation. There is moderate osteophyte formation at the inferior margin of the humeral head. In addition, there is mild to moderate narrowing of the glenohumeral joint space. There is no acute soft tissue abnormality. IMPRESSION: Degenerative changes without acute abnormality identified. Reviewed, Interpreted and Dictated by Mark Gauthier MD Transcribed by Anna Fuller Authenticated and [facility]
== END 2025-01-04 23:59 | disposition home or self-care (01) ==
LOC: RAD 10:51
PROVIDERS: PCP Family Medicine; Visit Provider Physician Assistant
DX: M89.8X2 Other specified disorders of bone, upper arm (principal)
CPT/HCPCS: 73060

== ENCOUNTER 2025-01-17 08:30 | Outpatient (CLI) | payer MEDICARE, SELFPAY ==
[2025-01-17 17:23] LABS: Basophils # 0.1 K/mm3 (0-0.2); Basophils % 1.2 % (0.1-2.0); Eosinophils # 0.1 Kmm3 (0.0-0.4); Eosinophils % 1.9 % (0.1-12.0); Hematocrit 39.6 % (37.0-47.0); Hemoglobin 12.9 g/dL (12.2-16.2); Lymphocytes # 1.3 K/mm3 (0.7-4.5); Lymphocytes % 21.2 % (10-50); Mean Corpuscular HGB Conc 32.6 g/dL (31.8-35.4); Mean Corpuscular Hemoglobin 30.5 pg (27.0-31.2); Mean Corpuscular Volume 93.6 fl (81-99); Mean Platelet Volume 10.5 fl (7.4-10.4); Monocytes # 0.4 K/mm3 (0.1-1.0); Neutrophils % 68.4 % (37.0-80.0); Nucleated Red Blood Cells # 0 10^3/uL; Nucleated Red Blood Cells % 0 %; Platelet Count 314 K/mm3 (142-424); Red Blood Count 4.23 M/mm3 (4.20-5.40); Red Cell Distribution Width 12.8 % (11.5-17.5); Red Cell Distribution Width-SD 43.7 fL; White Blood Count 5.9 K/mm3 (4.8-10.8)
[2025-01-17 17:56] LABS: Albumin Level 4.4 g/dl (3.5-5.0); Chloride 108 mmol/L (98-107); Potassium 5.2 mmoL/L (3.5-5.1); Sodium 139 mmol/L (136-145)
[2025-01-17 17:58] LABS: Alanine Aminotransferase 20 U/L (12-78); Aspartate Amino Transferase 31 U/L (14-36); Blood Urea Nitrogen 13 mg/dl (7-17); Estimated Glomerular Filt Rate 81 ml/min (>60); GFR (African American) 98 ML/MIN (>60)
[2025-01-17 17:59] LABS: Albumin/Globulin Ratio 1.7 (1.1-1.8); Alkaline Phosphatase 74 U/L (38-126); Anion Gap 11.2 mEq/L (5-15); Bilirubin,Total 0.9 mg/dl (0.2-1.3); Calcium 9.5 mg/dl (8.4-10.2); Carbon Dioxide 25 mmol/L (22.0-30.0); Chol/HDL Ratio 4.7 (1-3.5); Cholesterol 244 mg/dl (140-200); Globulin 2.6 g/dL (1.3-3.2); Glucose 69 mg/dl (74-100); HDL Cholesterol 52 mg/dl (40-60); Triglycerides 198 mg/dl (30-150); VLDL Cholesterol 40 mg/dL (0-40)
[2025-01-17 18:51] LABS: Direct LDL Cholesterol 143.01 mg/dL (100-129)
[2025-01-17 19:02] LABS: 25-OH Vitamin D, Total 24.2 ng/mL (30-100)
[2025-01-17 20:45] LABS: HIV Combo NEGATIVE (Negative)
[2025-01-17 20:52] LABS: Hepatitis C Ab Qual. W/ RFX NEGATIVE (Negative)
== END 2025-01-17 23:59 | disposition home or self-care (01) ==
LOC: LAB.DROPOF 01-19 08:30
PROVIDERS: PCP Family Medicine; Visit Provider Family Medicine
DX: I10 Essential (primary) hypertension (principal); E03.9 Hypothyroidism, unspecified; Z68.32 Body mass index [BMI] 32.0-32.9, adult; Z11.59 Encounter for screening for other viral diseases; Z11.4 Encounter for screening for human immunodeficiency virus [HIV]
CPT/HCPCS: 80053; 80061; 82306; 84443; 85025; 86803; 87389

== ENCOUNTER 2025-02-07 11:00 | Outpatient (RCR) | payer MEDICARE, SELFPAY ==
--- NOTE | 2025-01-18 09:03 | HMH.PTOPEV ---
PT Outpatient Evaluation Rehab PT Outpatient Evaluation Start: 01/18/25 07:58 Freq: Status: Active Protocol: Document 01/18/25 07:58 AIMEE (Rec: 01/18/25 09:03 [email or web address] [id number]) E-signed By Mo Alvarez, PT Outpatient Therapy Subjective History Subjective History Pt. is a 74 year old female who presents to [facility] in [place] for the outpatient initial evaluation this date( 01/18/25) w/ c/o subacute on chronic and constant LUE shldr . P!, stiffness, and weakness of insidious onset that has progressively been getting worse 3 months ago. Pt. vocalizes having a chronic history of LUE shldr. P! especially when the weather changes, but states symptoms usually go away. However, pt . reports symptoms have been getting worse. Pt. also c/o intermittent edema in the LUE shldr. when the P! worsens. Pt . c/o difficulty w/ shldr. elevation secondary to weakness and P!. Pt. reports having difficulty fixing her hair and even donning/doffing shirts and coats secondary to P!. Pt. reports having P! w/ reaching in her kitchen cabinets to grab dishes. Pt. describes P! as a constant soreness that can worsen to a sharp P! w/ activity. Pt. reports having some symptom relief w/ OTC Tylenol. Pt. denies having any injections at this time for current complaint. Recent diagnostic imaging(radiograph) indicates osteoarthritis and jt. abnormalities per pt. report. Pt. denies having any current restrictions at this time, denies RTMD at this time neither. Pt. denies numbness/ tingling into the LUE hand/ digits. Current medications include Tylenol, Synthroid. PMH includes Polio, Scoliosis, Osteoarthritis, Cholecystectomy, and Hyperlipidemia. New diagnosis of cancer in past 12 No months? Chief Complaint Pain,Stiff,Clicks,Swelling, Gives out/Unstable,Weakness Symptom Type Ache,Sharp,Dull,Stabbing,Other Symptoms Relieved By Rest/Positioning,OTC Meds Symptoms Aggravated By Physical Activity,Twisting, Lifting Prior Functional Limitations None Current Functional Limitations Reaching,Lifting,Housework, Dressing,Driving,Recreation Activity Symptom Description Constant but Variable,Activity Dependent Level of pain today (0-10) 5 Pain scale - at its best (0-10) 3 Pain scale - at its worst (0-10) 8 Shoulder/Elbow Eval Shoulder Objective Measurements Palpation Tenderness tenderness shoulder exam standard left tenderness over the bicipital tendon left shoulder exam standard tenderness over the SA bursa shoulder left exam standard Shoulder Palpation Findings Tenderness Shoulder Palpation Overall Comment grade 4 +TTP infraspintaus/ teres major/teres minor mms. swelling shoulder exam standard left Posture Shoulder Posture Sitting Position (L) Rounded,(L) Forward,(L) Elevated Shoulder Posture Standing Position (L) Rounded,(L) Forward,(L) Elevated Scapula Posture Sitting Position (L) Protracted,(L) Elevated Scapular Posture Standing Position (L) Protracted,(L) Elevated Flexibilty Deficits Latissmus Dorsi Muscle Length (L) Severe Tightness Pectoralis Minor Muscle Length (L) Severe Tightness Pectoralis Major Muscle Length (L) Severe Tightness Shoulder External Rotators Muscle Length (L) Severe Tightness Shoulder Internal Rotators Muscle Length (L) Severe Tightness Supraspinatus Muscle Length (L) Severe Tightness Teres Major Muscle Length (L) Severe Tightness Upper Trapezius Muscle Length (L) Severe Tightness Levaetor Scapulae Muscle Length (L) Severe Tightness Shoulder ROM Left Shoulder ROM Limitations Soft Tissue Tightness,Bony Restriction,Muscle Weakness, Muscle Tone,Pain Shoulder Abduction Active Range of 79 Motion (degrees) Shoulder Abduction Passive Range of 89 Motion (degrees) Shoulder Flexion Active Range of Motion 81 (degrees) Query Text: Shoulder Flexion Passive Range of Motion 112 (degrees) Shoulder External Rotation Active Range 29 of Motion (degrees) Shoulder External Rotation Passive Range 41 of Motion (degrees) Shoulder Internal Rotation Active Range 51 of Motion (degrees) Shoulder Internal Rotation Passive Range 61 of Motion (degrees) Shoulder Extension Active Range of 40 Motion (degrees) Shoulder Extension Passive Range of 43 Motion (degrees) pain with active ROM shoulder exam left standard pain with passive ROM shoulder exam left standard decreased ROM shoulder exam standard left Shoulder MMT Shoulder Abduction Strength Grade 3+ Fair+ Shoulder Extension Strength Grade 3+ Fair+ Shoulder Flexion Strength Grade 3+ Fair+ Shoulder External Rotation Strength 3+ Fair+ Grade Shoulder Internal Rotation Strength 3+ Fair+ Grade Shoulder Strength Patient Testing Sitting Position Shoulder Muscle Tone Shoulder Flexor Muscle Tone Description Severe Hypertonicity Shoulder Extensors Muscle Tone Severe Hypertonicity Description Shoulder Lateral Rotator Muscle Tone Severe Hypertonicity Description Shoulder Special Tests impingement sign present shoulder exam left standard Shoulder Drop Arm Test Positive Left Shoulder Cross-Over Impingement Test Positive Left Shoulder Fregoso-Jer Impingement Positive Left Test Elbow Objective Measurements Accessory Movements Left Shoulder Girdle Accessory Movements that Glenohumeral Ant [place], Elicit Symptoms Glenohumeral Post [place], Glenohumeral Inf [place] Outpatient Therapy Assessment Impairments Problems/Impairmments Palpation Tenderness,Impaired Range of Motion,Impaired Strength,Impaired Endurance, Impaired Driving,Impaired Lifting,Impaired Dressing, Impaired Shower/Bathing, Impaired Household Care, Impaired Recreational Activities,Impaired Work Activities,Increased Edema, Subjective C/O Pain,Impaired Self Care/Self Management Prognosis Rehab Potential Good Comment w/ HEP compliancy Clinical Impression Consistent with Diagnosis Yes Consistent with PATRICK vines. primary osteoarthritis Short Term Goals Number of Weeks 2 Decreased Palpation Tenderness Yes: grade 2 +TTP Decrease Subjective C/O Pain Yes: worse:01/27 Patient to be Ind w/ HEP Yes Intermediate Goals Number of Weeks 4-6 Decreased Palpation Tenderness Yes: grade 1 +TTP Increase Range of Motion Yes: LUE shldr. A/PROM >85% norms grossly for improved iADLs Increase Strength Yes: 4+ to 5/5 LUE shldr. complex MMT scores for improved iADLs Increase Ability to Drive/Ride in Car Yes: Pt. will be able to operate steering wheel w/o difficulty for improved iADL Restore Ability to Lift Objects to Yes: Pt. will be able to fix Shoulder Level hair w/ LUE w/o diffiuclty Restore Ability to Lift Objects Overhead Yes: Pt. will be able to reach into kitchen cabinets w/o difficulty Improve Ability to Dress Self Yes: Pt. will dress self IND. w/o difficulty Improve Ability to Shower/Bathe Self Yes Return to Recreational Activities Yes: Pt. will be able to return to sewing activities w/ o difficulty Improve Tolerance to Work Activities Yes: Pt. will return to shop related activities w/o difficulty Improve Quick Dash Score Yes Decrease Subjective C/O Pain Yes: worse:2-11/27 Patient to be Ind w/ Advanced HEP Yes Outpatient Therapy Plan of Care Treatment Plan May Include Therapeutic Exercise Including Home Yes Exercise Program Manual Therapy Techniques Yes Neuromuscular Re-education Yes Therapeutic Activities to Return to Yes Previous Functional/Work Level ADL/Self Care Education Yes Thermal Modalities Yes Electrical Stimulation Yes Ultrasound/Phonophoresis Yes Iontophoresis Yes Vasopneumatic Compression Pump Yes Massage Yes Eval/Re-Eval Yes Frequency Times per week 2 Duration Number of Weeks 4-6 Addendums This patient is a candidate for social No or vocational rehab? Patient/Guardian verbally acknowledges Yes understanding of treatment program and consents to further treatment? Patient/Guardian verbally acknowledges Yes understanding of diagnosis, prognosis and goals for treatment? Eval Complexity PT Charges 00642 - Low Complexity PHYSICIAN CERTIFICATION: I certify the specified therapy services for Thalia Montalvo are required, authorized, and reviewed every 30 days.
== END 2025-02-07 23:59 | disposition home or self-care (01) ==
LOC: PT 11:00
PROVIDERS: Visit Provider Physician Assistant
DX: M19.012 Primary osteoarthritis, left shoulder (principal)
CPT/HCPCS: 97110; 97140; 97163

== ENCOUNTER 2025-04-12 17:01 | Emergency (ER) | payer MEDICARE, SELFPAY ==
[2025-04-12 17:20] VITALS: BP 166/93; PULSE 75; RESP 18; TEMP 36.6; O2SAT 96; BMI 33.0
--- OUTSIDE RECORDS SUMMARY | 2025-04-12 17:22 | XMS_ITS | Clinical Summary ---
Author Organization [facility] Address [address] [place] [address] Care Team Providers Care Sign Language Instructor Name Role Phone Ze Beckford MD Primary Care Provider [phone] Allergies Active Allergy Reactions Criticality Noted Date Comments Aspirin GI Bleeding Medium 04/03/2022 Estrogens Other (See Comments) Medium 04/03/2022 Other Swelling 09/10/2023 To much salt causes glands and tongue to swell Medications levothyroxine (SYNTHROID, LEVOTHROID) 50 MCG tablet 1 tablet. 07/23/2023 Active escitalopram (LEXAPRO) 10 MG tablet 11/26/2021 Active colestipol (COLESTID) 1 g tablet TAKE 3 TABLETS 1 TIME EACH DAY FOR DIARRHEA 08/02/2023 Active Family History Medical History Relation Name Comments Diabetes Father Wilfred Arteaga Arthritis Maternal Grandmother [place] Hahn Breast cancer Neg Hx Ovarian cancer Neg Hx Relation Name Status Comments Father Wilfred Arteaga Maternal Grandmother [place] Hahn Social History Tobacco Use Types Packs/Day Years Used Date Smoking Tobacco: Never Tobacco Cessation:Counseling Given: Not Answered Alcohol Use Standard Drinks/Week Comments Never 0 (1 standard drink = 0.6 oz pur e alcohol) Abuse Screen Answer Date Recorded Unsafe at Home or Work/School Not on file Feels Threatened by Someone? Not on file 05/2023 Does Anyone Keep You from Co ntacting Others or Doint Things Outside the Home? Not on file 06/28/2023 Physical Sign of Abuse Present Not on file 1 Housing Stability Answer Date Recorded Current Living Arrangements Not on file 05/2023 Potentially Unsafe Housing Conditions Not on angeline e 06/28/2023 Family and Community Support Answer Sam e Recorded Help with Day-to-Day Activities Not on file 06/28/2023 Lonely or Isolated Not on file 06/28/2023 Employment Answer Date Recorded Do you want help finding or keeping work or a naz b? Not on file 06/28/2023 Disabilities Answer Date Recorded Concentrating, Remembering, or Making Decisions Difficulty Not on file 06/28/2023 Doing Errands Independently Difficulty Not on fi le 06/28/2023 Education Answer Date Recorded Help with school or training? Not on file Preferred Language Not on file 06/28/2023 Comments No Sex and Gender Information Value Date Recorded Sex Assigned at Not on file Legal Sex Female 10:29 AM EDT Gender Identity Not on file Sexual Orientation Not on file Last Filed Vital Signs Vital Sign Reading Time Taken Comments Blood Pressure - - Pulse - - Temperature 36.3 C (97.3 F) 09/10/2023 9:33 AM EST Respiratory Rate - - Oxygen Saturation - - Inhaled Oxygen Concentration - - Weight 92.1 kg (203 lb) 09/10/2023 9:33 AM EST Height 162.6 cm (5' 4 ) 09/10/2023 9:33 AM EST Body Mass Index 34.84 09/10/2023 9:33 AM EST Plan of Treatment Health Maintenance Due Date Last Done Comments ZOSTER VACCINE (1 of 2) 1998 DXA SCAN 05/02/2016 05/02/2014 Pneumococcal Vaccine 50+ (2 of 2 - PPSV23) 09/07/2018 09/07/2017 RSV Vaccine - Adults (1 - 1- dose 75+ series) 2023 ANNUAL WELLNESS VISIT 09/10/2023 HEPATITIS C SCREENING 09/10/2023 COVID-19 Vaccine (4 - 2023-2 5 season) 2024 08/28/2021, 11/21/2020, 10/24/2020 INFLUENZA VACCINE 06/20/2025 08/11/2023, , 07/03/2021, Additional history exists TDAP/TD VACCINES (2 - Td or Tdap) 04/22/2031 021 MAMMOGRAM Discontinued 02/27/2019, 11/19, 11/24/2016, Additional history exists COLOGUARD Discontinued 02/24/2022 COLORECTAL CANCER SCREENING Discontinued COLON CANCER SCREENING 5 YEA R SIGMOIDOSCOPY Discontinued COLONOSCOPY Discontinued CT COLONOGRAPHY Discontinued FECAL OCCULT BLOOD TEST Discontinued FIT Testing (1 year) Discontinued Procedures Procedure Name Priority Date/Time Associated Diagnosis Comments MAMMO SCREENING DIGITAL TOMOSYNTHESIS BILATERAL W CAD Routine 02/27/2019 11:09 AM EDT Visit for screening mammogram DEXA BONE DENSITY AXIAL Routine 05/02/2014 10:41 AM EDT from Last 3 Months or Most Recently Relevant to Health Maintenance Results * Mammo Screening Digital Tomosynthesis Bilateral With CAD (02/27/2019 11:09 AM EDT) Anatomical Region Laterality Modality Breast N/A Mammography 02/28/2019 3:42 PM EDT Impressions 02/28/2019 3:49 PM EDT No findings suspicious for malignancy. BI-RADS CATEGORY: 1, NEGATIVE RECOMMENDATION: Yearly mammogram, yearly clinical breast exam, and encourage self breast awareness. CAD was used. The standard false negative rate of mammography is between 10% and 25%. Complex patterns or increased breast density will markedly elevate the false negative rate of mammography. A letter, in lay terminology, with the results of this exam will be mailed to the patient. This report was finalized on 02/28/2019 3:[address] Елена Dougherty MD. Narrative 02/28/2019 3:49 PM EDT ROUTINE SCREENING MAMMOGRAM HISTORY: 68-year-old female for routine screening IMAGE COMPARISON: Prior exams, most recently dated 12/15/2017 TECHNIQUE: Low dose full field digital breast tomosynthesis imaging was performed with 2D and 3D acquisitions consisting of bilateral CC and MLO views. Bilateral nipple in profile CC views were also performed. FINDINGS: There are scattered areas of fibroglandular density. There is no worrisome mass, group of calcifications, or architectural distortion to suggest malignancy. Lucy Danielorly Inna MANAGER PRODUCE IMG MAMMOGRAPHY ORDER DEBBY Final Result * DEXA BONE DENSITY AXIAL (05/02/2014 10:41 AM EDT) Anatomical Region Laterality Modality Wrist, Hip, L-spine N/A Radiographic Imaging 05/02/2014 10:4 1 AM EDT Narrative 05/02/2014 4:15 PM EDT DUAL-ENERGY X-RAY ABSORPTIOMETRY (DXA) INDICATION: 63-year-old female for bone mineral densitometry COMPARISON: 03/31/2010 PROCEDURE: A DXA scan was performed using a Vator.TV densitometer. The lumbar spine L1-L4 was evaluated as well as the left total hip. The T-score compares the patient's bone mineral density with the peak bone mass of young normal patients. According to criteria established by the World Health Organization, patients with T-scores between 1.0 and 2.5 standard deviations BELOW the mean are osteopenic (low bone mass). Patients with T-scores EQUAL TO OR GREATER than 2.5 standard deviations below the mean are osteoporotic. The Z-score compares the patient bone mineral density with age and sex matched peers. According to the International Society for Clinical Densitometry's 2007 consensus conference: In women prior to menopause and men less than age 50, Z-scores, not T-scores are preferred. A Z-score of -2.0 or lower is defined as below the expected range for age and a Z-score above -2.0 is within the expected range for age. The WHO diagnostic criteria may be applied in women in the menopausal transition. Osteoporosis cannot be diagosed in men under age 50 on the basis of BMD alone. TECHNICAL QUALITY: The quality of the exam is good RESULTS: Lumber Spine: The BMD measured in the L1-L4 region is 1.249 g/cm2. The average T-score is 0.6. The Z-score is 1.3. Total Hip: The BMD measured at the left total proximal femur is 1.023 g/cm2. The T-score is 0.1. The Z-score is 0.7. Femoral Neck: The BMD measured at the left femoral neck is 0.864 g/cm2. The T-score is -1.2. The Z-score is -0.3. . IMPRESSION- Normal bone mineral density in the left hip and lumbar spine All the treatment decisions require clinical judgment and consideration of individual patient factors, including patient preferences, co-morbidities, previous drug use, risk factors not captured in the FRAX model (frailty, falls, vitamin D deficiency, increased bone turnover, interval significant decline in bone density) and possible under or over estimation of fracture risk by FRAX. Approaches to reduce osteoporosis related fracture risk include optimizing calcium and vitamin D status, appropriate weight bearing exercises and fall-prevention measurements. The National Osteoporosis Foundation recommends (http://www.nof.org/hcp/practice/qzoltpdt-yxb-magzpwak-guidelines/clinic ians-guide) that FDA-approved medical therapies be considered in postmenopaual women and men aged equal or greater than 50 years with : a) hip or vertebral (clinical or morphometric) fracture; b) T-score of -2.5 or less at the spine or hip; c) Ten-year fracture probablity by FRAX of greater than 3% for hip fracture of greater than 20% for major osteoporotic fracture. Secondary causes of bone loss should be evaluated if clinically indicated since the etiology of low BMD cannot be determined by BMD measurement alone. FOLLOWUP: Consider repeating the study in 2-3 years to reassess the patient's status or sooner if there is some new clinical indication. INTERVAL CHANGE: The bone mineral density in the lumbar spine has increased by 2.7 percentage points. The bone mineral density in the left hip is stable.. At this facility, the least signifcant change in the BMD at the lumbar spine with 95% confidence is 0.010 gm/cm2 and and 0.012 g/cm2 at the left hip. Reading Radiologist- ЕЛЕНА CHAN Releasing Radiologist- ЕЛЕНА CHAN Released Date Time- 05/02/14 1616 Supervisor [employer]N [facility] [place] ORDER[place] Fi nal Result from Last 3 Months or Most Recently Relevant to Health Maintenance Insurance MEDICARE ADVANTAGE Advance Directives Documents on File Type Date Recorded Patient Lead Machinist Expl anation PATIENT ADVANCE DIRECTIVES - SCAN 02/27/2019 10:46 AM 08/24/2022 Care Teams Sign Language Instructor Relationship Specialty Start Date End Date Ze Beckford MD [address] [place] [id number] PCP - General Family Medicine 09/01/23
--- NOTE | 2025-04-12 17:28 | XR_ITS ---
PROCEDURE INFORMATION: Exam: XR Chest Exam date and time: 04/12/2025 6:17 PM Age: 74 years old Clinical indication: Other: Luq abdominal pain TECHNIQUE: Imaging protocol: Radiologic exam of the chest. Views: 1 view. COMPARISON: CT ABDOMEN PELVIS W CON 04/12/2025 6:14 PM FINDINGS: Lungs: Moderate scarring and atelectasis in the lower lungs. Stigmata of old granulomatous disease. Pleural spaces: Unremarkable. No pleural effusion. No pneumothorax. Heart/Mediastinum: Cardiomegaly. Vasculature: Vascular calcifications. Bones/joints: Unremarkable. IMPRESSION: No acute findings.
--- NOTE | 2025-04-12 17:28 | CT_ITS ---
PROCEDURE INFORMATION: Exam: CT Abdomen And Pelvis With Contrast Exam date and time: 04/12/2025 6:14 PM Age: 74 years old Clinical indication: Abdominal pain; Additional info: Left sided abd pain, HX of diverticulitis TECHNIQUE: Imaging protocol: Computed tomography of the abdomen and pelvis with contrast. Radiation optimization: All CT scans at this facility use at least one of these dose optimization techniques: automated exposure control; mA and/or kV adjustment per patient size (includes targeted exams where dose is matched to clinical indication); or iterative reconstruction. Contrast material: ISOVUE; Contrast volume: 75 ml; Contrast route: IV; COMPARISON: CT ABDOMEN PELVIS W CON 06/29/2019 3:40 PM FINDINGS: Lungs: There is a 7 mm right middle lobe nodule image 8 series 3. There is a 3 mm left lower lobe nodule image 10 series 3. These are unchanged since at least 2019. Moderate scarring and atelectasis in the lower lungs. Pleural spaces: Tiny right pleural effusion. Heart: Cardiomegaly. Mitral valve calcifications. Liver: Mild fatty infiltration of the liver along the falciform ligament. Gallbladder and biliary ducts: Gallbladder is absent. Pancreas: Normal. No ductal dilation. Spleen: Normal. No splenomegaly. Adrenal glands: Normal. No mass. Kidneys and ureters: Low attenuation renal lesions measuring up to 18 mm in diameter are incompletely characterized, but are likely simple and parapelvic cysts. No followup imaging is warranted. Stomach and bowel: Moderate to severe sigmoid diverticulosis without diverticulitis. Appendix: Unremarkable appendix. Intraperitoneal space: Unremarkable. No free air. No significant fluid collection. Vasculature: Bilateral accessory renal arteries. The arteries demonstrate mild atherosclerotic disease. Lymph nodes: Unremarkable. No enlarged lymph nodes. Urinary bladder: Unremarkable as visualized. Reproductive: Unremarkable as visualized. Bones/joints: Levoscoliosis of the lumbar spine. Soft tissues: Tiny fat containing umbilical hernia. Other findings: Stigmata of old granulomatous disease. IMPRESSION: 1. No acute findings. 2. Tiny right pleural effusion. COMMENTS: Consistent with the [employer]'s Incidental Findings Committee white paper (J Am John Radiol 2018): Any incidental renal lesion less than 1 cm or classified as too small to characterize, or any incidental cystic renal lesion characterized as simple-appearing, is likely benign. No follow-up imaging is recommended for these lesions per consensus recommendations based on imaging criteria.
[2025-04-12 17:30] VITALS: BP 141/89; PULSE 74; RESP 22; O2SAT 92
[2025-04-12 17:40] LABS: Albumin Level 4.6 g/dl (3.5-5.0); Chloride 102 mmol/L (98-107); Hematocrit 40.4 % (37.0-47.0); Hemoglobin 13.5 g/dL (12.2-16.2); Mean Corpuscular HGB Conc 33.4 g/dL (31.8-35.4); Mean Corpuscular Hemoglobin 30.3 pg (27.0-31.2); Mean Corpuscular Volume 90.8 fl (81-99); Platelet Count 360 K/mm3 (142-424); Red Blood Count 4.45 M/mm3 (4.20-5.40); White Blood Count 7.2 K/mm3 (4.8-10.8)
[2025-04-12 17:41] LABS: Potassium 4.0 mmoL/L (3.5-5.1); Sodium 137 mmol/L (136-145)
[2025-04-12 17:43] LABS: Alanine Aminotransferase 18 U/L (12-78); Anion Gap 12.0 mEq/L (5-15); Aspartate Amino Transferase 29 U/L (14-36); Blood Urea Nitrogen 16 mg/dl (7-17); Carbon Dioxide 27 mmol/L (22.0-30.0); Creatinine Clearance Estimated 70 mL/min (50-200); Creatinine,Serum 0.80 mg/dl (0.52-1.04); Estimated Glomerular Filt Rate 70 ml/min (>60); GFR (African American) 84 ML/MIN (>60)
[2025-04-12 17:44] LABS: Albumin/Globulin Ratio 1.4 (1.1-1.8); Alkaline Phosphatase 93 U/L (38-126); Bilirubin,Total 0.9 mg/dl (0.2-1.3); Calcium 9.5 mg/dl (8.4-10.2); Globulin 3.4 g/dL (1.3-3.2); Glucose 103 mg/dl (74-100); Lipase 94 U/L (23-300); Total Protein,Serum 8.0 g/dl (6.3-8.2)
[2025-04-12] MEDS: PROCHLORPERAZINE 10MG/2ML VIAL 5 MG IV (17:44)
[2025-04-12 17:58] LABS: Microscopic, Urine URINE MICROSCOPIC (MICROSCOPIC)
[2025-04-12 17:59] LABS: Troponin I < 0.01 ng/ml (0.00-0.034)
[2025-04-12 18:00] VITALS: BP 151/83; PULSE 74; RESP 26; O2SAT 91
[2025-04-12 18:05] LABS: Bilirubin,Urine Negative (Negative); Color,Urine YELLOW (Yellow); Glucose,Urine (UA) Negative (Negative); Ketones,Urine Negative (Negative); Leukocyte Esterase,Urine 2+ (Negative); PH,Urine 6.0 (5.0-8.5); Protein,Urine Negative (Negative); Specific Gravity, Urine 1.025 (1.005-1.030); Urobilinogen,Urine 0.2 EU/dl (0.2)
[2025-04-12] MEDS: IOPAMIDOL-370 (76%);100ML BOTTLE 75 ML IV (18:14)
[2025-04-12] MEDS: SODIUM CHLORIDE 0.9% 10ML SYR (RAD ONLY) 10 ML IV (18:14)
[2025-04-12 18:15] LABS: Bacteria,Urine 3+ /lpf; WBC,Urine 20-50 #/hpf (0-3)
--- NOTE | 2025-04-12 18:16 | HMH.EDGENADL ---
Discharge Plan Disposition Patient Disposition: Home, Self-Care Condition: Good Prescriptions Prescriptions: New amoxicillin-pot clavulanate 875-125 mg tablet 1 tab PO Q12H Qty: 14 0RF prochlorperazine maleate [Compazine] 5 mg tablet 5 mg PO Q8H PRN (Reason: anxiety) Qty: 14 0RF No Action hydroxyzine HCl 25 mg tablet 25 mg PO TID PRN (Reason: anxiety) All Day Allergy (cetirizine) 10 mg capsule 10 mg PO DAILY PRN (Reason: Allergy Symptoms) nystatin 100,000 unit/gram cream 1 applic TP TID PRN (Reason: yeast) 30 Days Qty: 30 2RF tizanidine 4 mg tablet 4 mg PO Q8H PRN (Reason: muscle spasticity) Qty: 20 0RF clobetasol 0.05 % cream 1 applic topical DAILY Qty: 60 2RF escitalopram oxalate 10 mg tablet 10 mg PO DAILY 90 Days Qty: 90 0RF levothyroxine 50 mcg tablet 50 mcg PO DAILY 90 Days Qty: 90 0RF colestipol 1 gram tablet 3 g PO DAILY 90 Days Qty: 270 3RF ondansetron 4 mg tablet,disintegrating 4 mg PO Q8H Qty: 30 0RF Referrals Follow up/Referrals: Ze Beckford MD [Primary Care Provider, Internal Medicine] - See instructions Activity Restrictions/Add. Instructions Additional Instructions/Restrictions: Please take Augmentin twice per day for the next 7 days. In addition to this I have prescribed Compazine to help with nausea at home. Please do not take Compazine in addition to Zofran. If you have any new or worsening symptoms please return to the emergency department. Otherwise I would like you to follow-up with your primary care physician in a week for further evaluation and monitoring Clinical Impressions Clinical Impression: Acute pyelonephritis Nausea and vomiting Qualifiers: Vomiting type: unspecified Qualified Code(s): R11.2 - Nausea with vomiting, unspecified Instructions Patient Instructions: Kidney Infection Print Language Print Language: Danish Discharge ED Provider: Tee Nichols Adult HPI General Chief complaint: Abdominal Pain Stated complaint: vomiting since Mon 7-21and fever Time Seen by Provider: 04/12/25 17:07 Mode of Arrival: Ambulatory Source of Information: Patient Description of Symptoms (Recalled from ER Triage Doc. by RN): pt reports epigastric pain,vomiting. decreased bowel movements after a bout of diarrhea. hx of diverticulitis. x1 week. History of Present Illness HPI narrative: This is a 74-year-old female patient, with past medical history of hypertension, hyperlipidemia, hypothyroidism, and diverticulitis, who is presenting to the emergency department today for evaluation of nausea vomiting and abdominal pain. The patient states that she began developing abdominal pain 2 to 3 days ago it was located in her upper abdomen initially but is now began to involve the left lower quadrant as well. On day 1 of symptoms she experienced some diarrhea with nausea and vomiting, but now the diarrhea has resolved and her vomiting has persisted. She was seen by her primary care physician on 04/11/2025 and she was prescribed tizanidine for suspicion of a muscle strain of the chest wall as well as Zofran for nausea and vomiting. He also ordered an outpatient CT scan of the abdomen and pelvis at that time with concern for diverticulitis versus gastroenteritis. The patient states that her vomiting has increased in frequency this afternoon and given the spread of her pain she decided to seek care here at the emergency department. She has not had any fevers but she has had chills. She is not complaining of any chest pain. No shortness of breath. She has had a cough over the course of the last 2 months but this is not productive of phlegm. She has been that she has been experiencing increased urinary frequency over the last several days but she has not developed dysuria. she does not drink alcohol and has no history of pancreatitis. She does have a surgical history that consist of cholecystectomy. Related Data Home Medications ?Medication ?Instructions ?Recorded ?Confirmed cetirizine 10 mg capsule (All Day 10 mg PO DAILY PRN Allergy Symptoms 04/03/22 04/11/25 Allergy (cetirizine)) hydroxyzine HCl 25 mg tablet 25 mg PO TID PRN anxiety 04/03/22 04/11/25 Previous Rx's ?Medication ?Instructions ?Recorded escitalopram oxalate 10 mg tablet 10 mg PO DAILY Depression 90 days 02/15/25 #90 tabs levothyroxine 50 mcg tablet 50 mcg PO DAILY 90 days #90 tabs 03/14/25 colestipol 1 gram tablet 3 g (3 x 1 gram) PO DAILY diarrhea 04/02/25 90 days #270 tabs ondansetron 4 mg disintegrating 4 mg PO Q8H #30 tabs 04/10/25 tablet clobetasol 0.05 % topical cream 1 applic topical DAILY #60 grams 04/11/25 nystatin 100,000 unit/gram topical 1 applic topical TID PRN yeast 30 04/11/25 cream days #30 grams tizanidine 4 mg tablet 4 mg PO Q8H PRN muscle spasticity 04/11/25 #20 tabs amoxicillin 875 mg-potassium 1 tab PO Q12H #14 tabs 04/12/25 clavulanate 125 mg tablet prochlorperazine maleate 5 mg 5 mg PO Q8H PRN anxiety #14 tabs 04/12/25 tablet (Compazine) Allergies Allergy/AdvReac Type Severity Reaction Status Date / Time Estrogens (ESTROGENS) Allergy Intermediate BLOOD CLOTS Verified 04/11/25 10:18 Btabefy-LKP-EjR Reductase Allergy myopathy Verified 04/11/25 10:18 Inhibitor aspirin AdvReac Intermediate BLEED Verified 04/11/25 10:18 PFSH PFSH Disclaimer: The information contained in this section may have been updated after the patient was seen, as this information can be updated by other users. Medical History (Updated 04/12/25 @ 19:42 by Tee Nichols DO) Diverticula of intestine Anxiety Depression Arthritis Scoliosis Irritable bowel syndrome (IBS) History of cataract Hyperlipidemia History of anemia Hypertension Hypothyroidism Surgical History History of incision and drainage History of colonoscopy History of cholecystectomy H/O tubal ligation Family History Father Family history of diabetes mellitus type II Mother Family history of diabetes mellitus type II Social History Smoking Status: Never smoker alcohol intake: never substance use type: denies use current occupational status: retired Travel in the last 8 weeks?: None current occupational exposures/hazards: No caffeine: Yes Have you lived/traveled outside US in past 30 days?: No Contact w/someone who lives/traveled outside US past 30 days?: No Exposure to someone with infectious disease in past 14 days?: No Do you have a fever (greater than 100.4 F or 38 C)?: No Have you tested positive for COVID-19?: No Exposed to someone with COVID-19 in past 14 days?: No Do you have a sore throat?: No Do you have a cough?: No Do you have any weakness?: No Do you have any diarrhea?: No Are you experiencing any unusual bleeding?: No Do you have any muscle aches/pain?: No Do you have any abdominal pain?: No Are you experiencing loss of taste or smell?: No Other Medical History Have you received the Flu Vaccine for this season: Yes Have you received the Pneumonia Vaccine: Yes ROS Obtained: Yes Systems reviewed as appropriate & no additional complaints except as documented Physical Exam General General appearance: alert and in no apparent distress Head Head exam: atraumatic and normocephalic Eye Eye exam: Present normal appearance and PERRL ENT ENT exam: Present normal exam and normal oropharynx Neck Neck exam: Present normal inspection and full ROM Chest Chest inspection: Present normal inspection and symmetric chest wall rise Respiratory Respiratory exam: Present normal lung sounds bilaterally; Absent respiratory distress Cardiovascular Cardiovascular exam: Present regular rate and normal rhythm Abdominal Exam Abdominal exam: Present soft and tenderness (Left upper quadrant left lower quadrant); Absent distention Neurological Exam Neurological exam: Present alert and oriented X3 Medical Decision Making Medical Records Medical records reviewed: Yes I reviewed the patient's medical records. Screening: Per USPSTF and CDC recommendations, given the prevalence of disease in our region, it is our hospital?s policy to screen for HIV and viral Hepatitis for all patients aged 18 and over and those with ongoing risk factors. Yossi Inquiry Pt receiving controlled substance: No Yossi was queried for this patient: No Vital Signs: 04/12/25 17:20 04/12/25 17:30 04/12/25 18:00 Temperature 98 F Temperature Source Tympanic Pulse Rate 74 74 Pulse Rate [Right] 75 Respiratory Rate 18 22 26 H Blood Pressure 141/89 H 151/83 H Blood Pressure [Right Arm] 166/93 H Blood Pressure Mean [Right Arm] 117 02 Sat by Pulse Oximetry 96 92 L 91 L 04/12/25 18:30 04/12/25 19:00 Temperature Temperature Source Pulse Rate 67 68 Pulse Rate [Right] Respiratory Rate 13 15 Blood Pressure 162/79 H 163/91 H Blood Pressure [Right Arm] Blood Pressure Mean [Right Arm] 02 Sat by Pulse Oximetry 92 L 90 L Lab Data Lab Results 04/12/25 17:10: Urine Color Yellow, Urine Appearance Clear, Urine pH 6.0, Ur Specific [place] 1.025, Urine Protein Negative, Urine Glucose (UA) Negative, Urine Ketones Negative, Urine Blood Trace-i, Urine Nitrate Negative, Urine Bilirubin Negative, Urine Urobilinogen 0.2, Ur Leukocyte Esterase 2+ A, Urine WBC 20-50, Ur Squamous Epith Cells 5-10, Urine Bacteria 3+ 04/12/25 17:11: WBC 7.2, RBC 4.45, Hgb 13.5, Hct 40.4, MCV 90.8, MCH 30.3, MCHC 33.4, RDW 12.1, Plt Count 360, MPV 10.1, Neut % (Auto) 64.9, Lymph % (Auto) 27.0, [place] % (Auto) 5.4, Eos % (Auto) 1.3, Baso % (Auto) 1.1, Neut # (Auto) 4.7, Lymph # (Auto) 1.9, [place] # (Auto) 0.4, Eos # (Auto) 0.1, Baso # (Auto) 0.1, Total Counted 100, Neutrophils % (Manual) 62, Lymphocytes % (Manual) 29, Monocytes % (Manual) 6, Eosinophils % (Manual) 2, Basophils % (Manual) 1.0, Platelet Estimate Normal, Poikilocytosis 1+, Anisocytosis 1+, Microcytosis 1+, Macrocytosis 1+, Tear Drop Cells 1+, Ovalocytes 1+, Sodium 137, Potassium 4.0, Chloride 102, Carbon Dioxide 27, Anion Gap 12.0, BUN 16, Creatinine 0.80, Estimated Creat Clear 70, Estimated GFR 70, Est GFR ( Amer) 84, Glucose 103 H, Calcium 9.5, Total Bilirubin 0.9, AST 29, ALT 18, Alkaline Phosphatase 93, Troponin I < 0.01, Total Protein 8.0, Albumin 4.6, Globulin 3.4 H, Albumin/Globulin Ratio 1.4, Lipase 94 04/12/25 17:11 04/12/25 17:11 Orders (Tests/Meds): ED MEDICATIONS Discontinued Medications Generic Name Dose Route Start Last Admin Trade Name Freq PRN Reason Stop Dose Admin Amoxicillin/Clavulanate Potassium 1 each 04/12/25 19:39 04/12/25 19:44 Amoxicillin/Clavulanate Potassium 875/125mg Tablet PO 04/12/25 19:40 1 each ONCE ONE Administration Iopamidol 75 ml 04/12/25 18:14 04/12/25 18:14 Iopamidol-370 (76%);100ml Bottle IV 04/12/25 18:15 75 ml ONCE ONE Administration Prochlorperazine Edisylate 5 mg 04/12/25 17:30 04/12/25 17:44 Prochlorperazine 10mg/2ml Vial IV 04/12/25 17:31 5 mg ONCE ONE Administration Sodium Chloride 10 ml 04/12/25 18:14 04/12/25 18:14 Sodium Chloride 0.9% 10ml Syr (Rad Only) IV 04/12/25 18:15 10 ml ONCE ONE Administration ORDERS Category Date Time Status CT abdomen pelvis w con Stat Cat Scan 04/12/25 17:28 Completed Portable CXR [XR chest portable] Stat Exams 04/12/25 17:28 Completed CBC Man Diff [Complete Blood Count Man Dif] Stat Lab 04/12/25 17:11 Completed CMP [Comprehensive Metabolic Panel] Stat Lab 04/12/25 17:11 Completed Lipase Stat Lab 04/12/25 17:11 Completed Troponin I Stat Lab 04/12/25 17:11 Completed Urinalysis and Microscopic Stat Lab 04/12/25 17:10 Completed Urine Culture Stat Micro 04/12/25 17:10 Received ECG Data Tracing #1: I reviewed this ECG and interpreted as documented below: EKG personally interpreted by me demonstrates normal sinus rhythm with a rate of 67 bpm, left axis, no IL prolongation, narrow QRS, no QTc prolongation. No ST elevation or depression. No overt signs of ischemia or arrhythmia Medical Decision Narrative: In summary, this is a 74-year-old female patient who is presenting to the emergency department today for evaluation of nausea, vomiting, resolved diarrhea, and diffuse left-sided abdominal pain. Comorbidities include hypertension and hyperlipidemia as well as a history of diverticulitis which could be contributing to her symptoms today. On initial evaluation of the patient they were resting comfortably in no acute distress and nontoxic in appearance. They are hemodynamically stable, saturating well room air, and are neurologically intact. On physical examination of the patient she is not experiencing any vomiting. She has focal tenderness in the left upper quadrant left lower quadrant of the abdomen with no guarding or rebound. No evidence of vernon peritonitis. Heart and lungs are clear to auscultation bilaterally. She is well-perfused distally and has good capillary refill. Differential diagnosis to include pancreatitis, diverticulitis, diverticular abscess, urinary tract infection, ACS/UT, electrolyte derangement, acute kidney injury, among others. Initial workup to include EKG with hematologic labs, chest x-ray, and CT abdomen pelvis. Initial interventions include IV Compazine 5 mg. Please see EKG interpretation above. Labs personally interpreted by me demonstrate evidence of urinary tract infection with 20-50 white blood cells, 3+ bacteria, and positive leukocyte esterase. There is no evidence of cardiac ischemia as her initial troponin is less than 0.01. Symptoms started greater than 4 hours ago so we will not obtain a delta. She does not have any signs of leukocytosis, electrolyte derangement, or acute kidney injury. Lipase is normal. CT scan personally interpreted by me demonstrates no evidence of pneumoperitoneum. Official radiology read is in agreement and states that there is diverticulosis without diverticulitis and no other acute findings. There is an incidental trace right-sided pleural effusion. The patient does not experiencing any shortness of breath or chest pain, and her symptoms are all on the left side so we will not pursue further workup for this at this time. On repeat reassessment of the patient she is resting comfortably and has not experienced any additional nausea since administration of Compazine. Given the fact that she is experiencing urinary frequency and she has a urinalysis consistent with urinary tract infection we will treat her with Augmentin. I have given her a dose of Augmentin here in the emergency department and have transmitted Compazine and Augmentin to her pharmacy to mail superintendent in the morning. I have requested that she not take Zofran in addition to the Compazine. We have discussed return precautions as well as follow-up with her primary care physician. She acknowledges understanding. At this time all questions have answered and all parties are agreeable to decision to discharge home. Critical Care Critical Care Time Critical Care Time: No
[2025-04-12 18:30] VITALS: BP 162/79; PULSE 67; RESP 13; O2SAT 92
--- NOTE | 2025-04-12 18:32 | ECG_ITS ---
APPROVED REPORT Exam: Resting ECG HR:67 bpm ECG Measurements Heart Rate 67 AXES AZ 170 P 45 QRSd 79 QRS -16 QT 394 T 20 QTc 409 Conclusion SINUS RHYTHM LOW QRS VOLTAGE IN PRECORDIAL LEADS [QRS DEFLECTION < 1.0 mV IN CHEST LEADS] BORDERLINE ECG UNCONFIRMED REPORT Electronically signed by : AB GOINS, 04/13/2025 01:00:22
[2025-04-12 19:00] VITALS: BP 163/91; PULSE 68; RESP 15; O2SAT 90
[2025-04-12 19:12] LABS: Anisocytosis 1+; Macrocytosis 1+; Microcytosis 1+; Poikilocytosis 1+; Tear Drop Cells 1+; Total Cells Counted 100
[2025-04-12 19:13] LABS: Ovalocytes 1+
[2025-04-12] MEDS: AMOXICILLIN/CLAVULANATE POTASSIUM 875/125MG TABLET 1 EACH PO (19:44)
[2025-04-12 19:50] VITALS: BP 165/92; PULSE 68; RESP 16; TEMP 36.7; O2SAT 94
--- NOTE | 2025-04-14 08:53 | PC.NURSE ---
Urine culture results reviewed by Dr. Doherty. No new orders received.
== END 2025-04-12 19:51 | disposition home or self-care (01) ==
PROVIDERS: Emergency Provider Student in an Organized Health Care Education/Training Program; PCP Family Medicine
DX: N10 Acute pyelonephritis (principal); R10.13 Epigastric pain; R11.2 Nausea with vomiting, unspecified
CPT/HCPCS: 71045; 74177; 80053; 81001; 83690; 84484; 85007; 85014; 85018; 85048; 85049; 87086; 93005; 96374; 99285; J0780; Q9967

== ENCOUNTER 2025-04-27 10:48 | Outpatient (CLI) | payer MEDICARE, SELFPAY ==
--- OUTSIDE RECORDS SUMMARY | 2025-04-30 11:00 | XMS_ITS | Clinical Summary ---
Author Organization [facility] Address [address] [place] [address] Care Team Providers Care Program Management Manager Name Role Phone Ze Beckford MD Primary Care Provider [phone] Allergies Active Allergy Reactions Criticality Noted Date [...] distortion to suggest malignancy. Lucy Danielorly Inna FURNACE RELINER IMG MAMMOGRAPHY ORDER DEBBY Final Result * DEXA BONE DENSITY AXIAL (05/02/2014 10:41 AM EDT) Anatomical Region Laterality Modality Wrist, Hip, L-spine N/A Radiographic Imaging 05/02/2014 10:4 1 AM EDT Narrative 05/02/2014 4:15 PM EDT DUAL-ENERGY X-RAY ABSORPTIOMETRY (DXA) INDICATION: 63-year-old female for bone mineral densitometry COMPARISON: 03/31/2010 PROCEDURE: A DXA scan was performed using a [id number] densitometer. The lumbar spine L1-L4 was evaluated [...] fall-prevention measurements. The National Osteoporosis Foundation recommends (http://www.nof.org/hcp/practice/yshgsbun-van-tramhhwf-guidelines/clinic ians-guide) that FDA-approved medical therapies be considered [...] ЕЛЕНА CHAN Released Date Time- 05/02/14 1616 Permastone Applicator- [place] Lucy Keith APRN [facility] DXA ORDERABLES Fi nal Result from Last 3 Months or Most Recently Relevant to Health Maintenance Insurance MEDICARE ADVANTAGE Advance Directives Documents on File Type Date Recorded Patient Technician Automated Equipment Expl anation PATIENT ADVANCE DIRECTIVES - SCAN 02/27/2019 10:46 AM 08/24/2022 Care Teams Program Management Manager Relationship Specialty Start Date End Date Ze Beckford MD [address] [place] [address] [place] [address] PCP - General Family Medicine 09/01/23
== END 2025-04-27 23:59 | disposition home or self-care (01) ==
LOC: LAB.DROPOF 04-30 10:49
PROVIDERS: PCP Nurse Practitioner Family; Visit Provider Nurse Practitioner Family
DX: R11.2 Nausea with vomiting, unspecified (principal)
CPT/HCPCS: 87086

== ENCOUNTER 2025-05-04 07:44 | Outpatient (CLI) | payer MEDICARE, SELFPAY ==
--- OUTSIDE RECORDS SUMMARY | 2025-05-04 07:47 | XMS_ITS | Clinical Summary ---
Author Organization [facility] Address [address] [place] [address] Care Team Providers Care Ham Clerk Name Role Phone Ze Beckford MD Primary Care Provider [phone]- [phone] Allergies Active Allergy Reactions Criticality Noted Date [...] distortion to suggest malignancy. Lucy Danielorly Inna FLOOR SPACE ALLOCATOR IMG MAMMOGRAPHY ORDER DEBBY Final Result * DEXA BONE DENSITY AXIAL (05/02/2014 10:41 AM EDT) Anatomical Region Laterality Modality Wrist, Hip, L-spine N/A Radiographic Imaging 05/02/2014 10:4 1 AM EDT Narrative 05/02/2014 4:15 PM EDT DUAL-ENERGY X-RAY ABSORPTIOMETRY (DXA) INDICATION: 63-year-old female for bone mineral densitometry COMPARISON: 03/31/2010 PROCEDURE: A DXA scan was performed using a Active-Semi densitometer. The lumbar spine L1-L4 was evaluated [...] fall-prevention measurements. The National Osteoporosis Foundation recommends (http://www.nof.org/hcp/practice/fmlidsnv-oeh-ezmemuad-guidelines/clinic ians-guide) that FDA-approved medical therapies be considered [...] ЕЛЕНА CHAN Released Date Time- 05/02/14 1616 Dairy Inspector- [place] Lucy Keith APRN [facility] DXA ORDERABLES Fi nal Result from Last 3 Months or Most Recently Relevant to Health Maintenance Insurance MEDICARE ADVANTAGE Advance Directives Documents on File Type Date Recorded Patient Credit Risk Analyst Expl anation PATIENT ADVANCE DIRECTIVES - SCAN 02/27/2019 10:46 AM 08/24/2022 Care Teams Ham Clerk Relationship Specialty Start Date End Date Ze Beckford MD [address] [place] [address] [place] [address] PCP - General Family Medicine 09/01/23
[2025-05-07 16:17] LABS: Pancreatic Elastase, Fecal 577 (>200)
== END 2025-05-04 23:59 | disposition home or self-care (01) ==
LOC: LAB 07:45
PROVIDERS: PCP Family Medicine; Visit Provider Nurse Practitioner Family
DX: R14.0 Abdominal distension (gaseous) (principal)
CPT/HCPCS: 82653

== ENCOUNTER 2025-06-07 06:08 | Day surgery (SDC) | payer MEDICARE, SELFPAY ==
[2025-05-30 14:59] VITALS: BMI 33.3
--- NOTE | 2025-06-05 11:34 | P.HP_ITS ---
History of Present Illness *Admission Date: 06/07/25 *History of present illness: Mrs. Montalvo is a 74-year-old female who is here for diagnostic EGD secondary to nausea and vomiting. She has had an increase in belching. She reports no significant heartburn, reflux or abdominal pain. The examination is deemed m edically necessary for diagnostic EGD. The patient has been seen, interviewed and examined prior to the procedure by both myself and the anesthesia provider. [facility] Disclaimer: The information contained in this section may have been updated after the patient was seen, as this information can be updated by other users. Medical History Diverticula of intestine Anxiety Depression Arthritis Scoliosis Irritable bowel syndrome (IBS) History of cataract Hyperlipidemia History of anemia Hypertension Hypothyroidism Surgical History History of incision and drainage History of colonoscopy History of cholecystectomy H/O tubal ligation Family History Father Family history of diabetes mellitus type II Mother Family history of diabetes mellitus type II Social History (Updated 06/07/25 @ 07:05 by Dasia Hayden RN) Smoking Status: Never smoker alcohol intake: never substance use type: denies use current occupational status: retired Travel in the last 8 weeks?: None current occupational exposures/hazards: No caffeine: Yes Have you lived/traveled outside US in past 30 days?: No Contact w/someone who lives/traveled outside US past 30 days?: No Exposure to someone with infectious disease in past 14 days?: No Do you have a fever (greater than 100.4 F or 38 C)?: No Have you tested positive for COVID-19?: No Exposed to someone with COVID-19 in past 14 days?: No Do you have a sore throat?: No Do you have a cough?: No Do you have any weakness?: No Are you experiencing any nausea/vomitting?: No Do you have any diarrhea?: No Are you experiencing any unusual bleeding?: No Do you have any muscle aches/pain?: No Do you have any abdominal pain?: No Are you experiencing loss of taste or smell?: No Other Medical History Have you received the Flu Vaccine for this season: Yes Have you received the Pneumonia Vaccine: Yes Review of Systems Review of Systems Review of systems (narrative): Negative *Cardiovascular Comments: Negative *Gastrointestinal Comments: Negative *Genitourinary Comments: Negative *Musculoskeletal Comments: Negative *Neurologic Comments: Negative Meds Home Medications and Allergies Home Medications ?Medication ?Instructions ?Recorded ?Confirmed ?Type cetirizine 10 mg capsule (All Day 10 mg PO DAILY PRN A llergy Symptoms 04/03/22 05/30/25 History Allergy (cetirizine)) levothyroxine 50 mcg tablet 50 mcg PO DAILY 90 days #9 0 tabs 03/14/25 05/30/25 Rx colestipol 1 gram tablet 3 g (3 x 1 gram) PO DAILY di arrhea 04/02/25 05/30/25 Rx 90 days #270 tabs nystatin 100,000 unit/gram topical 1 applic topical TI D PRN yeast 30 04/11/25 05/30/25 Rx cream days #30 grams tizanidine 4 mg tablet 4 mg PO Q8H PRN muscle spast icity 04/11/25 05/30/25 Rx #20 tabs hydroxyzine HCl 25 mg tablet 25 mg PO TID PRN anxiety or nausea 04/17/25 05/30/25 Rx #60 tabs prochlorperazine maleate 5 mg 5 mg PO Q8H PRN Nausea A nd Vomiting 05/01/2507/14 History tablet (Compazine) clobetasol 0.05 % topical cream 1 applic topical DAILY PRN Skin 05/30/25 05/30/25 History Irritation escitalopram oxalate 10 mg tablet 10 mg PO DAILY PRN D epression 05/30/25 05/30/25 History ondansetron 4 mg disintegrating 4 mg PO Q8H PRN Nausea 05/30/25 05/30/25 History tablet New Prescriptions to Start Prescriptions: Allergies Allergy/AdvReac Type Severity Reaction Status Date / Time Estrogens (ESTROGENS) Allergy Intermediate BLOOD CLOTS Verified 06/07/25 07:11 Wlzqeal-SUM-YyL Reductase Allergy myopathy Verified 06/07/25 07:11 Inhibitor aspirin AdvReac Intermediate BLEED Verified 06/07/25 07:11 Exam *Routine HEENT Exam Head: Present normocephalic Eye: Present EOMI and PERRL ENT: Present mucous membranes moist *Routine Neck Exam Neck: Present supple *Routine Respiratory Exam Respiratory: Present CTA bilaterally *Routine Cardiovascular Exam Cardiovascular: Present RRR *Routine Abdominal Exam Abdominal: Present soft and normoactive bowel sounds; Absent tenderness *Routine Rectal Exam Rectal:: deferred *Routine Genitalia Exam Genitalia:: deferred *Routine Extremities Exam Extremities: Absent cyanosis, clubbing or edema *Routine Skin Exam Skin: Present warm; Absent rash *Routine Neurological Exam Neurological: Present alert and oriented X3 Assessment and Plan *Assessment and plan (1) Belching: Status: Acute Category: Medical Code(s): R14.2 - Eructation (2) Bloating: Status: Acute Category: Medical Code(s): R14.0 - Abdominal distension (gaseous) (3) Nausea and vomiting: Status: Acute Qualifiers: Vomiting type: unspecified Qualified Code(s): R11.2 - Nausea with vomiting, unspecified Category: Medical Code(s): R11.2 - Nausea with vomiting, unspecified Plan A/P: 1. Nausea and vomiting with belching and bloating is the preprocedural diagnosis. The patient will be anesthetized/sedated using MAC sedation. The patient has been seen and examined. Cardiac and lung assessment prior to the examination is stable. Proceed with planned diagnostic EGD.
[2025-06-07 07:04] VITALS: BP 138/87; PULSE 72; RESP 16; TEMP 36.4; O2SAT 93
--- NOTE | 2025-06-07 07:11 | HMH.PROCNOTE ---
[facility] Procedure Note Date: 06/07/25 Time: 07:32 Procedure Note:: Upper Endoscopy Procedure Report: Esophagogastroduodenoscopy with cold biopsies Endoscopost: Vitaliy Horta II, MD Referring Physician: Ze Beckford MD Date of Procedure: June 07, 2025 Equipment: Olympus GIF-1100 standard upper endoscope Sedation: MAC sedation Indications: Mrs. Montalvo is a 74-year-old female who is here for diagnostic EGD secondary to nausea and vomiting. This began on March 20, 2025 and occurs sporadically. She has had an increase in belching. The patient also notes some bloating and hiccups. She does struggle some with diarrhea. She reports no significant heartburn, reflux or abdominal pain. The patient reports no dysphagia. The patient has had some improvement with Compazine and Zofran. This is her first upper endoscopy. The examination is deemed medically necessary for diagnostic EGD. Procedure: Prior to the procedure, a history and physical exam was performed, and patient's medications and allergies were reviewed. The risks, benefits and alternatives of the sedation and procedure were discussed with the patient. All questions were answered and informed consent was obtained. The patient was brought to the procedure room. Patient identification and proposed procedure were verified by the physician and the nurse. The patient was placed in a left lateral decubitus position and the scope was passed under direct vision. Throughout the procedure, the patient's blood pressure, pulse, and oxygen saturations were monitored continuously. The upper GI endoscopy was accomplished without difficulty. The patient tolerated the procedure well. Findings: The scope was passed directly into the upper esophagus and advanced to the third portion of the duodenum. The post bulbar duodenum and duodenal bulb were normal with normal mucosa and conniventes. A cold biopsy was taken from the second portion of the duodenum for the disaccharidase assay. The scope was withdrawn through a normal duodenal bulb and pylorus into the stomach. There was some mild linear reactive gastropathy of the antrum. The body and fundus of the stomach were normal. Cold biopsies were taken from the antrum. Upon retroflexion there was a 2 cm sliding hiatal hernia. The scope was then withdrawn into the esophagus. There was no evidence of reflux esophagitis or Kohli's. There were some tertiary contractions and evidence of mild esophageal dysmotility. The remainder of the esophageal mucosa was normal. Impression: 1. Small 2 cm sliding hiatal hernia with mild esophageal dysmotility 2. Mild linear reactive gastropathy of antrum Plan: I will follow-up the biopsies and disaccharidase assay. I do feel that she may benefit from a digestive enzyme (i.e. Creon) even though her elastase test was within the normal range (577) but still under the majority of persons (greater than 800). We will discuss additional treatment options.
[2025-06-07] MEDS: LACTATED RINGERS 1000ML 1,000 ML 50 ML IV (07:18)
[2025-06-07 07:35] VITALS: BP 115/74; PULSE 78; RESP 16; TEMP 36.6; O2SAT 92
[2025-06-07 07:45] VITALS: BP 111/70; PULSE 68; RESP 16; TEMP 36.6; O2SAT 92
--- NOTE | 2025-06-07 07:53 | EXP.ANES.CKL ---
[facility] Disclaimer: The information contained in this section may have been updated after the patient was seen, as this information can be updated by other users. Medical History Diverticula of intestine Anxiety Depression Arthritis Scoliosis Irritable bowel syndrome (IBS) History of cataract Hyperlipidemia History of anemia Hypertension Hypothyroidism Surgical History History of incision and drainage History of colonoscopy History of cholecystectomy H/O tubal ligation Family History Father Family history of diabetes mellitus type II Mother Family history of diabetes mellitus type II Social History (Updated 06/07/25 @ 07:05 by Dasia Hayden RN) Smoking Status: Never smoker alcohol intake: never substance use type: denies use current occupational status: retired Travel in the last 8 weeks?: None current occupational exposures/hazards: No caffeine: Yes Have you lived/traveled outside [place] in past 30 days?: No Contact w/someone who lives/traveled outside [place] past 30 days?: No Exposure to someone with infectious disease in past 14 days?: No Do you have a fever (greater than 100.4 F or 38 C)?: No Have you tested positive for COVID-19?: No Exposed to someone with COVID-19 in past 14 days?: No Do you have a sore throat?: No Do you have a cough?: No Do you have any weakness?: No Are you experiencing any nausea/vomitting?: No Do you have any diarrhea?: No Are you experiencing any unusual bleeding?: No Do you have any muscle aches/pain?: No Do you have any abdominal pain?: No Are you experiencing loss of taste or smell?: No [facility] [place] Anesthesia Checklist Patient Identification Patient Identification: Verbal (Name & ) Structural Data Admitted From: Home Planned Operative Procedure/s: egd Consent for Planned Operative Procedure(s) Verified: Yes NPO Status Verified Time NPO: 00:00 Additional verifications Anesthesia Reactions: Yes (nausea and vomiting) Hx Blood Transfusions: No Blood Transfusion Reaction: No Airway Assessment Mallampati Score:: Class II C-Spine Mobility Assessed: Yes TMJ Mobility Assessed: Yes Dentition: Good Dentition Neurological Assessment Level of Consciousness: Awake, Alert and Appropriate Anesthesia Plan Anesthesia Risk discussed: Yes Anesthesia Plan: Verified ASA Class: II Anesthesia Type: MAC
[2025-06-07 07:55] VITALS: BP 131/91; PULSE 69; O2SAT 93
[2025-06-07 08:05] VITALS: BP 144/77; PULSE 66; RESP 18; O2SAT 94
[2025-06-12 16:13] LABS: Interpretation Notes (.); Lactase 5.26 (>/= 14.0); Maltase 79.38 (>/= 110.0); Palatinase 4.73 (>/= 8.5); Reference Notes (.); Sucrase 17.35 (>/= 25.0)
== END 2025-06-07 08:05 | disposition home or self-care (01) ==
PROVIDERS: PCP Family Medicine; Visit Provider Internal Medicine Gastroenterology
PROC: 0DJ08ZZ Inspection of Upper Intestinal Tract, Via Natural or Artificial Opening Endoscopic (ICD-10-PCS; CPT 43239; principal; 2025-06-07 07:30)
DX: K44.9 Diaphragmatic hernia without obstruction or gangrene (principal); K22.4 Dyskinesia of esophagus; K31.89 Other diseases of stomach and duodenum; F41.9 Anxiety disorder, unspecified; F32.A Depression, unspecified; K58.9 Irritable bowel syndrome, unspecified; E78.5 Hyperlipidemia, unspecified; I10 Essential (primary) hypertension; E03.9 Hypothyroidism, unspecified; Z88.6 Allergy status to analgesic agent; Z88.8 Allergy status to other drugs, medicaments and biological substances
CPT/HCPCS: 43239; 82657; J2003; J2704; J7120